=== PATIENT | female | born 1995 | race Two or more races ===

== ENCOUNTER 2016-11-23 13:17 | Outpatient (CLI) | payer OTHER ==
[2016-11-23 14:14] LABS: APPEARANCE,URINE CLEAR; BILIRUBIN,URINE NEGATIVE (NEGATIVE); GLUCOSE, URINE NEGATIVE (NEGATIVE); KETONES,URINE NEGATIVE (NEGATIVE); LEUKOCYTE ESTERASE,URINE NEGATIVE (NEGATIVE); NITRITE,URINE NEGATIVE (NEGATIVE); PROTEIN,URINE NEGATIVE (NEGATIVE); URINE SPECIFIC GRAVITY 1.009; UROBILINOGEN,URINE NEGATIVE mg/dL (<2.0)
[2016-11-23 14:17] LABS: AMNISURE (ROM) NEGATIVE (NEGATIVE)
--- NOTE | 2016-11-23 14:28 | Non Stress Test Report ---
Non Stress Test Datetime Report Generated by CPN: 11/23/2016 14:28 DEMOGRAPHIC EGA NST: 35.6 INDICATION Indication for Study: Other Indication for Study (NST) Other: Labor Check MONITORING Monitor Explained: Monitor Explained; Test Explained; Patient Verbalized Understanding Time on Monitor: 11/23/2016 13:53 Time off Monitor: 11/23/2016 14:20 NST Duration: 27 NST INTERVENTIONS NST Interventions: PO Hydration; Reposition Patient Physician Notified NST: KHetal Rico CNM BABY A: [id number] BABY A Movement : Present Contraction Frequency : irreg FHR Baseline : 140 Accelerations : 15X15 Decelerations : None Variability : Moderate 6-25bpm NST Review: Meets Criteria for Reactive NST NST Review and Verified By : Jazmine Spring RN NST Results: Reactive NST REPORT Report Trigger: Send Report
[2016-11-23 14:30] LABS: URINE BARBITURATES SCREEN NEGATIVE; URINE METHADONE SCREEN NEGATIVE; URINE PHENCYCLIDINE SCREEN NEGATIVE
--- NOTE | 2016-11-29 09:16 | Antepartum Discharge Summary ---
Antepartum DC Datetime Report Generated by CPN: 11/29/2016 09:16 DIET/ACTIVITY/RESTRICTIONS Diet: Regular (11/23/2016 14:24:Maliha Tatum RN) Activity: Normal Activity (11/23/2016 14:24:Maliha Tatum RN) TEACHING/INSTRUCTIONS/REFERRALS Instructions Given To: Patient/FOB (11/23/2016 14:24:Maliha Tatum RN) Instructions Understood: Patient Verbalized Understanding; Support Person Verbalized Understanding (11/23/2016 14:24:Maliha Tatum RN) Referrals: None (11/23/2016 14:24:Maliha Tatum RN) Educational Materials- Other: Kick counts, labor (11/23/2016 14:24:Maliha Tatum RN) DISCHARGE INFORMATION Discharged To: Home (11/23/2016 14:24:Maliha Tatum RN) Discharge Provider Name: Jarrell Rico CNM (11/23/2016 14:24:Maliha Tatum RN) Accompanied By: FOB (11/23/2016 14:24:Maliha Tatum RN) Discharge Method: Ambulatory (11/23/2016 14:24:Maliha Tatum RN) Condition: Stable (11/23/2016 14:24:Maliha Tatum RN) FOLLOW UP INFORMATION Follow Up With: [facility] (11/23/2016 14:24:Maliha Tatum RN) Follow Up On: As Scheduled (11/23/2016 14:24:Maliha Tatum RN) Follow Up Phone Number: [facility] - (11/23/2016 14:24:Maliha Tatum RN)
--- NOTE | 2016-11-29 09:16 | L&D Current Admission ---
Current Admit Datetime Report Generated by CPN: 11/29/2016 09:16 ADMISSION INFORMATION Chief Complaint: Suspected Rupture of Membranes (11/23/2016 13:59:Maliha Tatum RN)
--- NOTE | 2016-11-29 09:17 | L&D Flow Sheet ---
LD Flowsheet Datetime Report Generated by CPN: 11/29/2016 09:17 Datetime: 11/23/2016 14:27 Communication Communication Comments: Pt ambulated off floor in stable condition (Maliha Tatum, RN) Datetime: 11/23/2016 14:20 Communication Communication Comments: Monitors removed. D/C instructions given. labor and kick counts reviewed. Pt has no questions at this time. (Maliha Tatum, RN) Datetime: 11/23/2016 14:18 Communication Communication Comments: D/C order received per K. Rico CNM (Maliha Tatum, RN) Datetime: 11/23/2016 13:59 Pain Pain Scale: 0 (Maliha Tatum, RN) Pain Presence: None/Denies (Maliha Tatum, RN) Pain Type: N/A (Maliha Tatum, RN) Vaginal Exam Membrane Status: PT noted leaking of fluid around 0300 today. Pt states she has been wearing a panty liner and has had discharge on it. (Maliha Tatum RN) Vaginal Bleeding: Scant (Maliha Tatum RN) Maternal Assessment Level of Consciousness: Fully Conscious (Maliha Tatum RN) DTR's/Clonus: DTRs 2+; No Clonus (Maliha Tatum RN) Headache: Denies (Maliha Tatum RN) Breath Sounds, Left: Clear and Equal (Maliha Tatum RN) Breath Sounds, Right: Clear and Equal (Maliha Tatum RN) Nausea/Vomiting: Denies (Maliha Tatum RN) RUQ Epigastric Pain: Denies (Maliha Tatum, RN) Teaching Instructional Method: Verbal; Patient Instructed; Family/Support Person Instructed; Verbalized Understanding (Maliha Tatum RN) Plan of Care: Plan of Care Discussed (Maliha Tatum RN) Unit Routine: [place] to Room; Call [place]; Bed; Handwashing; Monitoring; Bathroom Privileges (Maliha Tatum RN) Datetime: 11/23/2016 13:54 Vital Signs NBP Sys/Solange/Mean (mmHg): 113 (QS system process) : 75 (QS system process) : 87 (QS system process) Pulse: 70 (QS system process) Datetime: 11/23/2016 13:52 Patient Care Patient Position/Activity: Right Lateral (Maliha Tatum RN)
--- NOTE | 2016-11-29 09:17 | L&D Discharge Summary ---
OB Discharge Summary Datetime Report Generated by CPN: 11/29/2016 09:17 DISCHARGE DIAGNOSIS Diagnosis/Symptoms: False Labor Gestation: 35.6 Number of Babies in Womb: 1 Parity: 0 DIET/ACTIVITY/RESTRICTIONS Diet: Regular Activity: Normal Activity TEACHING/INSTRUCTIONS/REFERRALS Instructions Given To: Patient/FOB Instructions Understood: Patient Verbalized Understanding; Support Person Verbalized Understanding Referrals: None Educational Materials- Other: Kick counts, labor DISCHARGE INFORMATION Discharged To: Home Discharge Provider Name: Jarrell Rico CNM Accompanied By: FOB Discharge Method: Ambulatory Condition: Stable FOLLOW UP INFORMATION Follow Up With: [facility] Follow Up On: As Scheduled Follow Up Phone Number: [facility] -
--- NOTE | 2016-11-29 09:17 | L&D General Admission ---
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: [employer] (11/23/2016 13:19:Maliha Tatum RN) Month of 1st Visit: May (11/23/2016 13:19:Maliha Tatum RN) Adequate Care: Yes (11/23/2016 13:19:Maliha Tatum RN) Prepregnancy Weight (lb): 110 (11/23/2016 13:19:Maliha Tatum RN) Prepregnancy Weight (kg): 50.0 (11/23/2016 13:19:QS system process) Height (in): 65 (11/23/2016 14:09:QS system process) ALLERGIES Medication Allergy: No (11/23/2016 13:19:Maliha Tatum RN) Medication Allergies: No Known Allergies (11/23/2016) (11/23/2016 14:09:QS system process) Latex Allergy: No Latex Allergies (11/23/2016 13:19:Maliha Tatum RN) COMMUNICATION Primary Language: Czech (11/23/2016 13:19:Maliha Tatum RN) DEMOGRAPHICS Address: [address] [place] [id number] (11/23/2016 13:17:QS system process) Zipcode: [address] (11/23/2016 13:17:QS system process) Home (11/23/2016 13:17:QS system process) SSN: [id number] (11/23/2016 13:17:QS system process) Next of Kin Name: BENITO DAIGLE (11/23/2016 13:17:QS system process) Next of Kin (11/23/2016 13:17:QS system process) Next of Kin Relationship: SPO (11/23/2016 13:17:QS system process) Date of : 1995 (11/23/2016 13:17:QS system process) Marital Status: (11/23/2016 13:17:QS system process) Sex: Female (11/23/2016 13:17:QS system process) Race: Other (11/23/2016 13:17:QS system process) Ethnicity: or (11/23/2016 13:17:QS system process) Quaker: None (11/23/2016 13:17:QS system process) DRUG AND ALCOHOL USE Alcohol: No (11/23/2016 13:19:Maliha Tatum RN) Cigarettes: Never Smoker. [id number] (11/23/2016 13:19:Maliha Tatum RN) Marijuana: No (11/23/2016 13:19:Maliha Tatum RN) Cocaine: No (11/23/2016 13:19:Maliha Tatum RN) Other Illicit Drugs: No (11/23/2016 13:19:Maliha Tatum RN) VACCINE HISTORY Influenza Vaccine: Yes (11/23/2016 13:19:Maliha Tatum RN) Influenza Date: 08/2016 (11/23/2016 13:19:Maliha Tatum RN) Pneumococcal Vaccine: No (11/23/2016 13:19:Maliha Tatum RN) Tetanus Vaccine: Yes (11/23/2016 13:19:Maliha Tatum RN) Tetanus Date: 09/2016 (11/23/2016 13:19:Maliha Tatum RN) Tdap Vaccine: Yes (11/23/2016 13:19:Maliha Tatum RN) Tdap Date: 09/2016 (11/23/2016 13:19:Maliha Tatum RN) Hepatitis B Vaccine: Uncertain (11/23/2016 13:19:Maliha Tatum RN) Feeding Preference: Both (11/23/2016 13:19:Maliha Tatum RN) Benefit of Breast Feed Discussed: Yes (11/23/2016 13:19:Maliha Tatum RN) Circumcision: No (11/23/2016 13:19:Maliha Tatum RN) Classes Attended: No (11/23/2016 13:19:Maliha Tatum RN) Tubal Ligation: No (11/23/2016 13:19:Maliha Tatum RN) Tubal Authorization Signed: N/A (11/23/2016 13:19:Maliha Tatum RN) Consent: N/A (11/23/2016 13:19:Maliha Tatum RN) Consent Signed: N/A (11/23/2016 13:19:Maliha Tatum RN) Support Person: Benito Daigle (11/23/2016 13:19:Maliha Tatum RN) Support Person Relationship: Significant Other (11/23/2016 13:19:Maliha Tatum RN) Cultural/Spritual Practice: No (11/23/2016 13:19:Maliha Tatum RN) Spir/Cult Dietary Needs: No (11/23/2016 13:19:Maliha Tatum RN) LIVING SITUATION/DISCHARGE PLAN Living Arrangements: House (11/23/2016 13:19:Maliha Tatum RN) Adequate Access to:: Electric; Heat; Refrigeration; Plumbing/Running water; Phone; Transportation (11/23/2016 13:19:Maliha Tatum RN) WIC Program: No (11/23/2016 13:19:Maliha Tatum RN) 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: Benito (11/23/2016 13:19:Maliha Tautm RN) Person to Help after Discharge: Benito (11/23/2016 13:19:Maliha Tatum RN) Currently Using Commun Resources: No (11/23/2016 13:19:Maliha Tatum RN) Outside Agency/Travel Specialist: No (11/23/2016 13:19:Maliha Tatmu RN) Car Seat for Discharge: Yes (11/23/2016 13:19:Maliha Tatum RN) Adoption Requested: No (11/23/2016 13:19:Maliha Tatum RN) Pt Contact w/ Post : N/A (11/23/2016 13:19:Maliha Tatum RN) LABS Blood Type: A Positive (11/23/2016 13:19:Maliha Tatum RN) Antibody Screen: Negative (11/23/2016 13:19:Maliha Tatum RN) Gonorrhea: Negative (11/23/2016 13:19:Maliha Tatum RN) Chlamydia: Negative (11/23/2016 13:19:Maliha Tatum RN) RPR/VDRL: Nonreactive (11/23/2016 13:19:Maliha Tatum RN) HIV Exposure Test: Negative (11/23/2016 13:19:Maliha Tatum RN) Hepatitis B: Negative (11/23/2016 13:19:Maliha Tatum RN) Rubella: Immune (11/23/2016 13:19:Maliha Tatum RN) OB/PREVIOUS HISTORY Current Procedures: Ultrasound; NST (11/23/2016 13:19:Maliha Tatum RN) History of Previous : No (11/23/2016 13:19:Maliha Tatum RN) History of Gestational Diabetes: No (11/23/2016 13:19:Maliha Tatum RN) History of PIH: No (11/23/2016 13:19:Maliha Tatum RN) History of Incompetent Cervix: No (11/23/2016 13:19:Maliha Tatum RN) History of Placenta Previa/Abrup: No (11/23/2016 13:19:Maliha Tatum RN) History of Macrosomia: No (11/23/2016 13:19:Maliha Tatum RN) History of IUGR: No (11/23/2016 13:19:Maliha Tatum RN) History of Hemorrhage: No (11/23/2016 13:19:Maliha Tatum RN) History of Loss/Stillborn: No (11/23/2016 13:19:Maliha Tatum RN) History of : No (11/23/2016 13:19:Maliha Tatum RN) History of D (Rh) Sensitization: No (11/23/2016 13:19:Maliha Tatum RN) History Recurrent Loss/Stillborn: No (11/23/2016 13:19:Maliha Tatum RN) History Depression/PP Depression: No (11/23/2016 13:19:Maliha Tatum RN) History of Uterine Anomaly/LOPEZ: No (11/23/2016 13:19:Maliha Tatum RN) History of Infertility: No (11/23/2016 13:19:Maliha Tatum RN) History of ART Treatment: No (11/23/2016 13:19:Maliha Tatum RN) History of LOPEZ: No (11/23/2016 13:19:Maliha Tatum RN) Comments Obstetrical History: G1: IEB 2013 G2: SAB 2014 G3: current (11/23/2016 13:19:Maliha Tatum RN) MEDICAL HISTORY Med Hx Diabetes: No (11/23/2016 13:19:Maliha Tatum RN) Med Hx Hypertension: No (11/23/2016 13:19:Maliha Tatum RN) Med Hx Heart Disease: No (11/23/2016 13:19:Maliha Tatum RN) Med Hx Autoimmune Disorder: No (11/23/2016 13:19:Maliha Tatum RN) Med Hx Kidney Disease/UTI: No (11/23/2016 13:19:Maliha Tatum RN) Med Hx Neurologic/Epilepsy: No (11/23/2016 13:19:Maliha Tatum RN) Med Hx Psychiatric Disorders: No (11/23/2016 13:19:Maliha aTtum RN) Med Hx Hepatitis/Liver Disease: No (11/23/2016 13:19:Maliha Tatum RN) Med Hx Varicosities/Phlebitis: No (11/23/2016 13:19:Maliha Tatum RN) Med Hx Thyroid Dysfunction: No (11/23/2016 13:19:Maliha Tatum RN) Med Hx Trauma/Violence: No (11/23/2016 13:19:Maliha Tatum RN) Med Hx Blood Transfusion: No (11/23/2016 13:19:Maliha Tatum RN) Med Hx Pulmonary (Asthma,TB): Yes (11/23/2016 13:19:Maliha Tatum RN) Med Hx Breast: No (11/23/2016 13:19:Maliha Tatum RN) Med Hx SUPERVISOR PIGMENT MAKING Surgery: No (11/23/2016 13:19:Maliha Tatum RN) Med Hx Hospitalization/Surgery: No (11/23/2016 13:19:Maliha Tatum RN) Med Hx Anesthetic Complications: No (11/23/2016 13:19:Maliha Tatum RN) Med Hx Abnormal Pap Smear: No (11/23/2016 13:19:Maliha Tatum RN) Other Medical Diseases: No (11/23/2016 13:19:Maliha Tatum RN) Med Hx Significant Family Hx: No (11/23/2016 13:19:Maliha Tatum RN) Details of Med/Surg Hx: Asthma (Albuterol) (11/23/2016 13:19:Maliha Tatum RN) INFECTIOUS HISTORY Inf Hx Gonorrhea: No (11/23/2016 13:19:Mlaiha Tatum RN) Inf Hx Chlamydia: No (11/23/2016 13:19:Maliha Tatum RN) Inf Hx Syphilis: No (11/23/2016 13:19:Maliha Tatum RN) Inf Hx HIV/AIDS: No (11/23/2016 13:19:Maliha Tatum RN) Inf Hx Human Papilloma Virus: No (11/23/2016 13:19:Maliha Tatum RN) Inf Hx Pt/Partner Genital Herpes: No (11/23/2016 13:19:Maliha Tatum RN) Inf Hx Tuberculosis/Exposure: No (11/23/2016 13:19:Maliha Tatum RN) Inf Hx Hepatitis B,C: No (11/23/2016 13:19:Maliha Tatum RN) Inf Hx Rash or Viral Illness: No (11/23/2016 13:19:Maliha Tatum RN) GENETIC HISTORY Gen Hx Age >=35 at [place]AL[place]: No (11/23/2016 13:19:Maliha Tatum RN) Gen Hx Thalassemia: No (11/23/2016 13:19:Maliha Tatum RN) Gen Hx Congenital Heart Defect: No (11/23/2016 13:19:Maliha Tatum RN) Gen Hx Neural Tube Defect: No (11/23/2016 13:19:Maliha Tatum RN) Gen Hx Down's Syndrome: No (11/23/2016 13:19:Maliha Tatum RN) Gen Hx Guevara-Sachs: No (11/23/2016 13:19:Maliha Tatum RN) Gen Hx Caren: No (11/23/2016 13:19:Maliha Tatum RN) Gen Hx Familial Dysautonomia: No (11/23/2016 13:19:Maliha Tatum RN) Gen Hx Sickle Cell Disease/Trait: No (11/23/2016 13:19:Maliha Tatum RN) Gen Hx Hemophilia/Blood Disorder: No (11/23/2016 13:19:Maliha Tatum RN) Gen Hx Muscular Dystrophy: No (11/23/2016 13:19:Maliha Tatum RN) Gen Hx Cystic Fibrosis: No (11/23/2016 13:19:Maliha Tatum RN) Gen Hx Huntingtons Chorea: No (11/23/2016 13:19:Maliha Tatum RN) Gen Hx Mental Retardation/Autism: No (11/23/2016 13:19:Maliha Tatum RN) Gen Hx Tested for Fragile X: No (11/23/2016 13:19:Maliha Tatum RN) Gen Hx Other Inher/Chromosomal: No (11/23/2016 13:19:Maliha Tatum RN) Gen Hx Maternal Metabolic DO: No (11/23/2016 13:19:Maliha Tatum RN) Gen Hx Pt Father or FOB Defect: No (11/23/2016 13:19:Maliha Tatum RN) Gen Hx Other Genetic History: No (11/23/2016 13:19:Maliha Tatum RN) Gen Hx Drugs/Meds since LMP: Yes (11/23/2016 13:19:Maliha Tatum RN) Gen Hx Medications: PNV, albuterol, tylenol (11/23/2016 13:19:Maliha Tatum RN)
== END 2016-11-23 14:27 | disposition home or self-care (01) ==
LOC: LC 13:17
PROVIDERS: ATTEND Obstetrics & Gynecology
PROC: 4A1HXCZ Monitoring of Products of Conception, Cardiac Rate, External Approach (ICD-10-PCS; principal; 2016-11-23)
DX: Z34.93 Encounter for supervision of normal pregnancy, unspecified, third trimester (principal); Z3A.35 35 weeks gestation of pregnancy
CPT/HCPCS: 59025; 80307; 81001; 84112

== ENCOUNTER 2016-12-15 21:24 | Inpatient (IN) | payer OTHER ==
--- NOTE | 2016-12-15 22:00 | L&D Flow Sheet ---
LD Flowsheet Datetime Report Generated by CPN: 12/15/2016 22:00 Datetime: 12/15/2016 21:56 Patient Care Patient Care Comments: Lab personnel at bedside (Madie Anthony, RN) Datetime: 12/15/2016 21:50 Uterine Activity Frequency (min): per patient every 4 minutes (Madie Anthony, RN) Pain Pain Scale: 2 (Madie Anthony, RN) Pain Presence: Intermittent (Madie Anthony, RN) Pain Type: Pressure; Ache (Madie Anthony, RN) Pain Location: Back (Madie Anthony, RN) Pain Goal: 1 (Madie Anthony, RN) Pain Relief Measures: Comfort Measures (Madie Anthony, RN) Pain Coping: Talking Through Contractions (Madie Anthony, RN) Vaginal Exam Vaginal Bleeding: None (Madie Anthony, RN) Maternal Assessment Level of Consciousness: Fully Conscious (Madie Anthony, RN) DTR's/Clonus: DTRs 2+; No Clonus (Madie Anthony, RN) Headache: Denies (Madie Anthony, RN) Breath Sounds, Left: Clear and Equal (Madie Anthony, RN) Breath Sounds, Right: Clear and Equal (Madie Anthony, RN) Nausea/Vomiting: Denies (Madie Anthony, RN) RUQ Epigastric Pain: Denies (Madie Anthony, RN) LaborFlag: Antepartum (QS system process) Datetime: 12/15/2016:45 Communication Communication: Provider Orders Received (Madie Anthony, RN) Communication Comments: Dr Terry called and informed of EGA and blood pressures. Orders received to obtain pre-e labs. (Madie Anthony, RN) Datetime: 12/15/2016 21:42 NBP Sys/Solange/Mean (mmHg): 164 (Madie Anthony, RN) : 98 (Madie Anthony, RN) Vital Sign Comments: Manual Blood Pressure (Madie Anthony, RN) LaborFlag: Antepartum (QS system process) Datetime: 12/15/2016 21:41 NBP Sys/Solange/Mean (mmHg): 154 (QS system process) : 102 (QS system process) : 123 (QS system process) Pulse: 70 (QS system process) LaborFlag: Antepartum (QS system process) Datetime: 12/15/2016 21:40 Vital Signs Stage of : Antepartum (Lily Lattibeaudeir, RN) NBP Sys/Solange/Mean (mmHg): 172 (QS system process) : 101 (QS system process) : 129 (QS system process) Pulse: 71 (QS system process) LaborFlag: Antepartum (QS system process) Datetime: 12/15/2016 21:37 Vital Signs Stage of : Antepartum (Zaina Márquez, RN)
[2016-12-15 22:15] LABS: APPEARANCE,URINE CLEAR; BILIRUBIN,URINE NEGATIVE (NEGATIVE); GLUCOSE, URINE NEGATIVE (NEGATIVE); KETONES,URINE TRACE mg/dL (NEGATIVE); LEUKOCYTE ESTERASE,URINE NEGATIVE (NEGATIVE); NITRITE,URINE NEGATIVE (NEGATIVE); PROTEIN,URINE 100 mg/dL (NEGATIVE); URINE SPECIFIC GRAVITY 1.009; UROBILINOGEN,URINE NEGATIVE mg/dL (<2.0)
[2016-12-15 22:32] LABS: ABSOLUTE LYMPHOCYTES (AUTO) 2.2 10^3/uL (0.5-4.7); ABSOLUTE MONOCYTES (AUTO) 0.4 10^3/uL (0.1-1.4); ABSOLUTE NEUT (AUTO) 4.8 10^3/uL (1.7-8.2); BASOPHILS % (AUTO) 0.4 % (0-2); EOSINOPHILS % (AUTO) 0.6 % (0-6); HEMATOCRIT 34.1 % (36.0-47.0); HEMOGLOBIN 11.8 g/dL (12.0-15.5); HGB HCT DIFFERENCE 1.3; LYMPHOCYTES % (AUTO) 29.7 % (13-45); MEAN CORPUSCULAR HEMOGLOBIN 30.3 pg (27.0-33.4); MEAN CORPUSCULAR HGB CONC 34.5 g/dL (32.0-36.0); MEAN CORPUSCULAR VOLUME 88 fl (80-97); MONOCYTES % (AUTO) 5.8 % (3-13); RED BLOOD COUNT 3.88 10^6/uL (3.72-5.28); RED CELL DISTRIBUTION WIDTH 14.5 % (11.5-14.0); SEGMENTED NEUTROPHILS % (AUTO) 63.5 % (42-78); WHITE BLOOD COUNT 7.5 10^3/uL (4.0-10.5)
[2016-12-15 22:38] LABS: URINE BARBITURATES SCREEN NEGATIVE; URINE METHADONE SCREEN NEGATIVE; URINE OPIATES LOW NEGATIVE; URINE PHENCYCLIDINE SCREEN NEGATIVE
[2016-12-15 22:47] LABS: ALANINE AMINOTRANSFERASE 23 U/L (9-52); ALKALINE PHOSPHATASE 155 U/L (38-126); ANION GAP 10 (5-19); ASPARTATE AMINO TRANSFERASE 25 U/L (14-36); BILIRUBIN,TOTAL 0.4 mg/dL (0.2-1.3); BLOOD UREA NITROGEN 11 mg/dL (7-20); CALCIUM 10.2 mg/dL (8.4-10.2); CARBON DIOXIDE 22 mmol/L (22-30); CHLORIDE 104 mmol/L (98-107); CREATININE RESULT 0.51 mg/dL (0.52-1.25); GLUCOSE 75 mg/dL (75-110); LDH 404 U/L (313-618); POTASSIUM 4.2 mmol/L (3.6-5.0); SODIUM 136.4 mmol/L (137-145); URIC ACID 3.8 mg/dL (2.5-6.2)
[2016-12-15] MEDS ORDERED: RINGERS SOLUTION,LACTATED 1,000 ML IV PRN (23:03)
[2016-12-15] MEDS ORDERED: RINGERS SOLUTION,LACTATED 1,000 ML IV ONE (23:03)
[2016-12-15] MEDS ORDERED: MISOPROSTOL 0.1 MG TABLET PV ONE (23:05)
[2016-12-15] MEDS ORDERED: LABETALOL HCL INJ 20 MG/4 ML DISP.SYRIN IV PRN (23:05)
[2016-12-15] MEDS ORDERED: MISOPROSTOL 0.1 MG TABLET ONE (23:33)
[2016-12-15] MEDS ORDERED: ZOLPIDEM TARTRATE 5 MG TABLET PO SCH (23:45)
[2016-12-15] MEDS ORDERED: ZOLPIDEM TARTRATE 5 MG TABLET ONE (23:54)
[2016-12-16] MEDS ORDERED: MISOPROSTOL 0.1 MG TABLET ONE (03:54)
[2016-12-16] MEDS ORDERED: DEXTROSE 5%-LACTATED RINGERS 1,000 ML IV PRN (05:49)
--- NOTE | 2016-12-16 08:01 | L&D Flow Sheet ---
LD Flowsheet Datetime Report Generated by CPN: 12/16/2016 08:00 Datetime: 12/16/2016 07:45 Monitor Mode: External; Palpation (Galilea Taynton, RN) Frequency (min): 1-3 (Galilea Taynton, RN) Quality: Mild/Moderate (Galilea Taynton, RN) Duration (sec): 40-100 (Galilea Taynton, RN) Resting Tone (Palpate): Relaxed (Galliea Taynton, RN) Monitor Mode: External US (Galilea Taynton, RN) FHR Baseline Rate : 135 (Galilea Taynton, RN) Variability: Moderate 6-25 bpm (Galilea Taynton, RN) Accelerations: 15X15 (Galilea Taynton, RN) Decelerations: None (Galilea Taynton, RN) Datetime: 12/16/2016 07:31 NBP Sys/Solange/Mean (mmHg): 146 (QS system process) : 97 (QS system process) : 117 (QS system process) Pulse: 67 (QS system process) LaborFlag: Antepartum (QS system process) Datetime: 12/16/2016 07:30 Monitor Mode: External; Palpation (Galilea Taynton, RN) Frequency (min): 1-2 (Galilea Taynton, RN) Quality: Mild/Moderate (Galilea Taynton, RN) Duration (sec): 40-60 (Galilea Taynton, RN) Resting Tone (Palpate): Relaxed (Galilea Taynton, RN) Monitor Mode: External US (Galilea Taynton, RN) FHR Baseline Rate : 140 (Galilea Taynton, RN) Variability: Minimal - Undetectable to <=5 bpm (Galilea Taynton, RN) Accelerations: None (Galilea Taynton, RN) Decelerations: None (Galilea Taynton, RN) Datetime: 12/16/2016 07:15 Monitor Mode: External; Palpation (Galilea Franks RN) Monitor Interventions for UA: [place] Adjusted (Galilea Franks RN) Frequency (min): x0 (Galilea Franks RN) Quality: Mild/Moderate (Galilea Franks RN) Resting Tone (Palpate): Relaxed (Galilea Franks RN) Monitor Mode: External US (Galilea Franks RN) FHR Baseline Rate : 140 (Galilea Franks RN) Variability: Minimal - Undetectable to <=5 bpm (Galilea Franks RN) Accelerations: None (Galilea Franks RN) Decelerations: None (Galilea Franks RN) I/O Interventions: Up to BR (Galilea Franks RN) Communication: RN at Bedside (Galilea Franks RN) Communication Comments: Bedside report received from Tracee Anthony RN; plan of care discussed with patient. Patient verbalized understanding (Galilea Franks RN) Datetime: 12/16/2016 07:01 NBP Sys/Solange/Mean (mmHg): 139 (QS system process) : 93 (QS system process) : 112 (QS system process) Pulse: 68 (QS system process) LaborFlag: Antepartum (QS system process) Datetime: 12/16/2016 07:00 Stage of : Antepartum (Madie Anthony, RN) Monitor Mode: External (Madie Anthony, RN) Frequency (min): irregular (Madie Anthony, RN) Quality: Mild/Moderate (Madie Anthony, RN) Pattern: Normal: <= 5 Contractions in 10 Minutes (Madie Anthony, RN) Resting Tone (Palpate): Relaxed (Madie Anthony, RN) Monitor Mode: External US (Madie Anthony, RN) FHR Baseline Rate : 140 (Madie Anthony, RN) FHR Baseline Changes: No Baseline Change (Madie Anthony, RN) Variability: Moderate 6-25 bpm (Madie Anthony, RN) Accelerations: 15X15 (Madie Anthony, RN) Decelerations: Early (Madie Anthony, RN) Communication: RN Reviewed Strip (Madie Anthony, RN) Datetime: 12/16/2016 06:50 I/O Interventions: Up to BR (Madie Anthony, RN) Datetime: 12/16/2016 06:31 NBP Sys/Solange/Mean (mmHg): 138 (QS system process) : 85 (QS system process) : 107 (QS system process) Pulse: 69 (QS system process) LaborFlag: Antepartum (QS system process) Datetime: 12/16/2016 06:30 Stage of : Antepartum (Madie Anthony, RN) Respirations: 18 (Madie Anthony, RN) Monitor Mode: External; Palpation (Madie Anthony, RN) Frequency (min): 2.5-3 (Madie Anthony, RN) Quality: Mild/Moderate (Madie Anthony, RN) Duration (sec): 50-90 (Madie Anthony, RN) Pattern: Normal: <= 5 Contractions in 10 Minutes (Madie Anthony, RN) Resting Tone (Palpate): Relaxed (Madie Anthony, RN) Monitor Mode: External US (Madie Anthony, RN) FHR Baseline Rate : 130 (Madie Anthony, RN) FHR Baseline Changes: No Baseline Change (Madie Anthony, RN) Variability: Moderate 6-25 bpm (Madie Anthony, RN) Accelerations: 15X15 (Madie Anthony RN) Decelerations: None (Madie Anthony RN) Pain Scale: 4 (Madie Anthony RN) Pain Presence: Intermittent (Madie Anthony RN) Pain Type: Contraction (Madie Anthony RN) Pain Location: Back (Madie Anthony RN) Pain Goal: 1 (Madie Anthony RN) Pain Relief Measures: Comfort Measures (Madie Anthony RN) Pain Coping: Talking Through Contractions; Breathing Through Contractions (Madie Anthony RN) Comfort Measures: Breathing/Relaxation; Family Support (Madie Anthony RN) Communication: RN at Bedside; RN Reviewed Strip (Madie Anthony RN) LaborFlag: Antepartum (QS system process) Datetime: 12/16/2016 06:05 I/O Interventions: Up to BR (Madie Anthony RN) Datetime: 12/16/2016 06:01 NBP Sys/Solange/Mean (mmHg): 134 (QS system process) : 87 (QS system process) : 106 (QS system process) Pulse: 75 (QS system process) LaborFlag: Antepartum (QS system process) Datetime: 12/16/2016 06:00 Stage of : Antepartum (Madie Anthony, RN) Monitor Mode: External; Palpation (Madie Anthony, RN) Frequency (min): 1-4 (Madie Anthony, RN) Quality: Mild/Moderate (Madie Anthony, RN) Duration (sec): 40-80 (Madie Anthony, RN) Pattern: Normal: <= 5 Contractions in 10 Minutes (Madie Anthnoy, RN) Resting Tone (Palpate): Relaxed (Madie Anthony, RN) Monitor Mode: External US (Madie Anthony, RN) FHR Baseline Rate : 125 (Madie Anthony, RN) FHR Baseline Changes: No Baseline Change (Madie Anthony, RN) Variability: Minimal - Undetectable to <=5 bpm (Madie Anthony, RN) Accelerations: None (Madie Anthony, RN) Decelerations: None (Madie Anthony, RN) Communication: RN at Bedside; RN Reviewed Strip (Madie Anthony, RN) Datetime: 12/16/2016 05:58 IV/Blood Work: New IV Bag Hung (Madie Anthony, RN) Patient Care Comments: LR 125ml/hr (Madie Anthony, RN) Datetime: 12/16/2016 05:46 IV/Blood Work: IV Bolus Started (Madie Anthony, RN) Patient Care Comments: Bolus of D5 started (Madie Anthony, RN) Datetime: 12/16/2016 05:31 NBP Sys/Solange/Mean (mmHg): 117 (QS system process) : 75 (QS system process) : 92 (QS system process) Pulse: 75 (QS system process) LaborFlag: Antepartum (QS system process) Datetime: 12/16/2016 05:30 Stage of : Antepartum (Madie Anthony, RN) Monitor Mode: External (Madie Anthony, RN) Frequency (min): irregular (Madie Anthony, RN) Quality: Mild/Moderate (Madie Anthony, RN) Duration (sec): 40-90 (Madie Anthony, RN) Pattern: Normal: <= 5 Contractions in 10 Minutes (Madie Anthony, RN) Resting Tone (Palpate): Relaxed (Madie Anthony, RN) Monitor Mode: External US (Madie Anthony, RN) FHR Baseline Rate : 130 (Madie Anthony, RN) FHR Baseline Changes: No Baseline Change (Madie Anthony, RN) Variability: Moderate 6-25 bpm (Madie Anthony, RN) Accelerations: 15X15 (Madie Anthony, RN) Comments: spontaneous decel x1 (Madie Anthony, RN) Communication: RN Reviewed Strip (Madie Anthony, RN) Datetime: 12/16/2016 05:01 NBP Sys/Solange/Mean (mmHg): 126 (QS system process) : 69 (QS system process) : 93 (QS system process) Pulse: 67 (QS system process) LaborFlag: Antepartum (QS system process) Datetime: 12/16/2016 05:00 Stage of : Antepartum (Madie Anthony, RN) Monitor Mode: External (Madie Anthony, RN) Frequency (min): irregular (Madie Anthony, RN) Quality: Mild/Moderate (Madie Anthony, RN) Duration (sec): 70-110 (Madie Anthony, RN) Pattern: Normal: <= 5 Contractions in 10 Minutes (Madie Anthony, RN) Resting Tone (Palpate): Relaxed (Madie Anthony, RN) Monitor Mode: External US (Madie Atnhony, RN) FHR Baseline Rate : 125 (Madie Anthony, RN) FHR Baseline Changes: No Baseline Change (Madie Anthony, RN) Variability: Moderate 6-25 bpm (Madie Anthony, RN) Accelerations: 15X15 (Madie Anthony, RN) Decelerations: None (Madie Anthony, RN) Communication: RN Reviewed Strip (Madie Anthony, RN) Datetime: 12/16/2016 04:32 NBP Sys/Solange/Mean (mmHg): 138 (QS system process) : 80 (QS system process) : 104 (QS system process) Pulse: 75 (QS system process) LaborFlag: Antepartum (QS system process) Datetime: 12/16/2016 04:30 Stage of : Antepartum (Madie Anthony, RN) Monitor Mode: External (Madie Anthony, RN) Frequency (min): irregular (Madie Anthony, RN) Quality: Mild/Moderate (Madie Anthony, RN) Duration (sec): 90-120 (Madie Anthony, RN) Pattern: Normal: <= 5 Contractions in 10 Minutes (Madie Anthony, RN) Resting Tone (Palpate): Relaxed (Madie Anthony, RN) Monitor Mode: External US (Madie Anthony, RN) FHR Baseline Rate : 130 (Madie Anthony, RN) FHR Baseline Changes: No Baseline Change (Madie Anthony, RN) Variability: Moderate 6-25 bpm (Madie Anthony, RN) Accelerations: 15X15 (Madie Atnhony, RN) Decelerations: None (Madie Anthony, RN) Comments: with periods of minimal variability (Madie Anthony, RN) Communication: RN at Bedside; RN Reviewed Strip (Madie Anthony, RN) Datetime: 12/16/2016 04:09 Respirations: 18 (Madie Anthony, RN) Temperature (F): 98.4 (Madie Anthony, RN) Temperature (C): 36.9 (QS system process) Patient Position/Activity: Right Lateral (Madie Anthony, RN) LaborFlag: Antepartum (QS system process) Datetime: 12/16/2016 04:08 Dilatation (cm): 1.5 (Madie Anthony, RN) Effacement (%): 80 (Madie Anthony, RN) Station: -1 (Madie Anthony, RN) Exam by: Tracee Anthony RN (Madie Anthony, RN) Vaginal Bleeding: None (Madie Anthony, RN) Cervix, Consistency: Moderate (Madie Anthony, RN) Cervix, Position: Midposition (Madie Anthony, RN) Cervical Ripening Agents: Cytotec @ (Lily Lattibeaudeir, RN) Medication Comments: PV (Madie Anthony, RN) Datetime: 12/16/2016 04:01 NBP Sys/Solange/Mean (mmHg): 119 (QS system process) : 79 (QS system process) : 95 (QS system process) Pulse: 67 (QS system process) LaborFlag: Antepartum (QS system process) Datetime: 12/16/2016 04:00 Stage of : Antepartum (Madie Anthony, RN) Monitor Mode: External; Palpation (Madie Anthony, RN) Frequency (min): irregular with irritability (Madie Anthony, RN) Quality: Mild/Moderate (Madie Anthony, RN) Pattern: Normal: <= 5 Contractions in 10 Minutes (Madie Anthony, RN) Resting Tone (Palpate): Relaxed (Madie Anthony, RN) Monitor Mode: External US (Madie Anthony, RN) FHR Baseline Rate : 130 (Madie Anthony, RN) FHR Baseline Changes: No Baseline Change (Madie Anthony, RN) Variability: Moderate 6-25 bpm (Madie Anthony, RN) Accelerations: 15X15 (Madie Anthony, RN) Decelerations: None (Madie Anthony, RN) Comments: with periods of minimal variability (Madie Anthony, RN) Communication: RN at Bedside; RN Reviewed Strip (Madie Anthony, RN) Datetime: 12/16/2016 03:31 NBP Sys/Solange/Mean (mmHg): 125 (QS system process) : 79 (QS system process) : 97 (QS system process) Pulse: 70 (QS system process) LaborFlag: Antepartum (QS system process) Datetime: 12/16/2016 03:30 Stage of : Antepartum (Madie Anthony RN) Monitor Mode: External (Madie Anthony RN) Frequency (min): irregular (Madie Anthony RN) Quality: Mild/Moderate (Madie Anthony RN) Pattern: Normal: <= 5 Contractions in 10 Minutes (Madie Anthony RN) Resting Tone (Palpate): Relaxed (Madie Anthony RN) Contraction Comments: UTD duration due to patient movement and up to restroom (Madie Anthony RN) Monitor Mode: External US (Madie Anthony RN) FHR Baseline Rate : 130 (Madie Anthony RN) FHR Baseline Changes: No Baseline Change (Madie Anthony RN) Variability: Moderate 6-25 bpm (Madie Anthony RN) Accelerations: 15X15 (Madie Anthony RN) Decelerations: None (Madie Anthony RN) Communication: RN at Bedside; RN Reviewed Strip (Madie Anthony, RN) Datetime: 12/16/2016 03:22 Vital Sign Comments: BP cuff moved to L arm (Madie Anthony, RN) Patient Position/Activity: Right Lateral (Madie Anthony, RN) Datetime: 12/16/2016 03:19 I/O Interventions: Up to BR (Madie Anthony, RN) Datetime: 12/16/2016 03:02 NBP Sys/Solange/Mean (mmHg): 143 (QS system process) : 98 (QS system process) : 118 (QS system process) Pulse: 66 (QS system process) LaborFlag: Antepartum (QS system process) Datetime: 12/16/2016 03:00 Stage of : Antepartum (Madie Anthony, MARCELLUS) Respirations: 16 (Madie Anthony, RN) Monitor Mode: External (Madie Anthony, RN) Frequency (min): x2 (Madie Anthony, MARCELLUS) Quality: Mild/Moderate (Madie Anthony, RN) Duration (sec): 60-120 (Madie Anthony, RN) Pattern: Normal: <= 5 Contractions in 10 Minutes (Madie Anthony, RN) Resting Tone (Palpate): Relaxed (Madie Anthony, RN) Monitor Mode: External US (Madie Anthony, RN) FHR Baseline Rate : 140 (Madie Anthony, RN) FHR Baseline Changes: No Baseline Change (Madie Anthony, RN) Variability: Moderate 6-25 bpm (Madie Anthony, RN) Accelerations: 15X15 (Madie Anthony, RN) Decelerations: None (Madie Anthony, RN) Pain Scale: 2 (Madie Anthony RN) Pain Presence: Intermittent (Madie Anthony RN) Pain Type: Pressure; Ache (Madie Anthony RN) Pain Location: Back (Madie Anthony RN) Pain Goal: 1 (Madie Anthony RN) Pain Relief Measures: Comfort Measures (Madie Anthony RN) Pain Coping: Talking Through Contractions (Madie Anthony RN) Comfort Measures: Breathing/Relaxation; Family Support (Madie Anthony RN) Communication: RN at Bedside; RN Reviewed Strip (Madie Anthony RN) LaborFlag: Antepartum (QS system process) Datetime: 12/16/2016 02:43 NBP Sys/Solange/Mean (mmHg): 136 (QS system process) NBP Sys/Solange/Mean (mmHg): 154 (QS system process) : 82 (QS system process) : 104 (QS system process) : 103 (QS system process) : 123 (QS system process) Pulse: 71 (QS system process) Pulse: 83 (QS system process) Vital Sign Comments: Patient on Left side with BP cuff on left arm, switched cuff to right arm and retook blood pressure. (Madie Anthony RN) LaborFlag: Antepartum (QS system process) Datetime: 12/16/2016 02:33 Patient Position/Activity: Left Lateral; Low Fowlers (Madie Anthony RN) Datetime: 12/16/2016 02:32 NBP Sys/Solange/Mean (mmHg): 152 (QS system process) : 105 (QS system process) : 124 (QS system process) Pulse: 71 (QS system process) LaborFlag: Antepartum (QS system process) Datetime: 12/16/2016 02:30 Stage of : Antepartum (Madie Anthony, RN) Monitor Mode: External (Madie Anthony, RN) Frequency (min): 3-5.5 (Madie Anthony, RN) Quality: Mild/Moderate (Madie Anthony, RN) Duration (sec): 70-140 (Madie Anthony, RN) Pattern: Normal: <= 5 Contractions in 10 Minutes (Madie Anthony, RN) Resting Tone (Palpate): Relaxed (Madie Anthony, RN) Monitor Mode: External US (Madie Anthony, RN) FHR Baseline Rate : 135 (Madie Anthony, RN) FHR Baseline Changes: No Baseline Change (Madie Anthony, RN) Variability: Moderate 6-25 bpm (Madie Anthony, RN) Accelerations: Prolonged (Madie Anthony, RN) Decelerations: None (Madie Anthony, RN) Communication: RN Reviewed Strip (Madie Anthony, RN) Datetime: 12/16/2016 02:02 NBP Sys/Solange/Mean (mmHg): 160 (QS system process) : 91 (QS system process) : 120 (QS system process) Pulse: 64 (QS system process) LaborFlag: Antepartum (QS system process) Datetime: 12/16/2016 02:00 Stage of : Antepartum (Madie Anthony, RN) Monitor Mode: External (Madie Anthony, RN) Frequency (min): 2-6.5 (Madie Anthony, RN) Quality: Mild/Moderate (Madie Anthony, RN) Duration (sec): 80-120 (Madie Anthony, RN) Pattern: Normal: <= 5 Contractions in 10 Minutes (Madie Anthony, RN) Resting Tone (Palpate): Relaxed (Madie Anthony, RN) Monitor Mode: External US (Madie Anthony, RN) FHR Baseline Rate : 135 (Madie Anthony, RN) FHR Baseline Changes: No Baseline Change (Madie Anthony, RN) Variability: Moderate 6-25 bpm (Madie Anthony, RN) Accelerations: 15X15 (Madie Anthony, RN) Decelerations: None (Madie Anthony, RN) Communication: RN at Bedside; RN Reviewed Strip (Madie Anthony, RN) Datetime: 12/16/2016 01:31 NBP Sys/Solange/Mean (mmHg): 134 (QS system process) : 90 (QS system process) : 108 (QS system process) Pulse: 63 (QS system process) LaborFlag: Antepartum (QS system process) Datetime: 12/16/2016 01:30 Stage of : Antepartum (Madie Anthony, RN) Monitor Mode: External (Madie Anthony, RN) Frequency (min): 2-7 (Madie Anthony, RN) Quality: Mild/Moderate (Madie Anthony, RN) Duration (sec): 80-110 (Madie Anthony, RN) Pattern: Normal: <= 5 Contractions in 10 Minutes (Madie Anthony, RN) Resting Tone (Palpate): Relaxed (Madie Anthony, RN) Monitor Mode: External US (Madie Anthony, RN) FHR Baseline Rate : 130 (Madie Anthony, RN) Variability: Moderate 6-25 bpm (Madie Anthony, RN) Accelerations: 15X15 (Madie Anthony, RN) Decelerations: None (Madie Anthony, RN) Comments: with a change in baseline to 150 (Madie Anthony, RN) Communication: RN Reviewed Strip (Madie Anthony, RN) Datetime: 12/16/2016 01:02 NBP Sys/Solange/Mean (mmHg): 145 (QS system process) : 92 (QS system process) : 114 (QS system process) Pulse: 63 (QS system process) LaborFlag: Antepartum (QS system process) Datetime: 12/16/2016 01:00 Stage of : Antepartum (Madie Anthony, RN) Monitor Mode: External (Madie Anthony, RN) Frequency (min): 3-5 (Madie Anthony, RN) Quality: Mild/Moderate (Madie Anthony, RN) Duration (sec): 90-140 (Madie Anthony, RN) Pattern: Normal: <= 5 Contractions in 10 Minutes (Madie Anthony, RN) Resting Tone (Palpate): Relaxed (Madie Anthony, RN) Monitor Mode: External US (Madie Anthony, RN) FHR Baseline Rate : 130 (Madie Anthony, RN) FHR Baseline Changes: No Baseline Change (Madie Anthony, RN) Variability: Moderate 6-25 bpm (Madie Anthony, RN) Accelerations: 15X15 (Madie Anthony, RN) Decelerations: None (Madie Anthony, RN) Communication: RN Reviewed Strip (Madie Anthony, RN) Datetime: 12/16/2016 00:31 NBP Sys/Solange/Mean (mmHg): 137 (QS system process) : 84 (QS system process) : 106 (QS system process) Pulse: 67 (QS system process) LaborFlag: Antepartum (QS system process) Datetime: 12/16/2016 00:30 Stage of : Antepartum (Madie Anthony, RN) Monitor Mode: External (Madie Anthony, RN) Frequency (min): 3-5 (Madie Anthony, RN) Quality: Mild/Moderate (Madie Anthony, RN) Duration (sec): 70-140 (Madie Anthony, RN) Pattern: Normal: <= 5 Contractions in 10 Minutes (Madie Anthony, RN) Resting Tone (Palpate): Relaxed (Madie Anthony, RN) Monitor Mode: External US (Madie Anthony, RN) FHR Baseline Rate : 130 (Madie Anthony, RN) FHR Baseline Changes: No Baseline Change (Madie Anthony, RN) Variability: Moderate 6-25 bpm (Madie Anthony, RN) Accelerations: 15X15 (Madie Anthony, RN) Decelerations: None (Madie Anthony, RN) Communication: RN at Bedside; RN Reviewed Strip (Madie Anthony, RN) Datetime: 12/16/2016 00:01 NBP Sys/Solange/Mean (mmHg): 129 (QS system process) : 88 (QS system process) : 104 (QS system process) Pulse: 71 (QS system process) LaborFlag: Antepartum (QS system process) Datetime: 12/16/2016 00:00 Stage of : Antepartum (Madie Anthony, RN) Monitor Mode: External; Palpation (Madie Anthony, RN) Frequency (min): irregular (Madie Anthony, RN) Quality: Mild/Moderate (Madie Anthony, RN) Duration (sec): 50-100 (Madie Anthony, RN) Pattern: Normal: <= 5 Contractions in 10 Minutes (Madie Anthony, RN) Resting Tone (Palpate): Relaxed (Madie Anthony, RN) Monitor Mode: External US (Madie Anthony, RN) FHR Baseline Rate : 130 (Madie Anthony, RN) FHR Baseline Changes: No Baseline Change (Madie Anthony, RN) Variability: Moderate 6-25 bpm (Madie Anthony, RN) Accelerations: 15X15 (Madie Anthony, RN) Decelerations: None (Madie Anthony, RN) Communication: RN at Bedside; RN Reviewed Strip (Madie Anthony, RN) Datetime: 12/15/2016 23:59 Analgesics/Sedatives: Ambien (mg) @ 5 (Madie Anthony, RN) Datetime: 12/15/2016 23:49 Dilatation (cm): 1.5 (Madie Anthony, RN) Effacement (%): 60 (Madie Anthony, RN) Station: -1 (Madie Anthony, RN) Exam by: Tracee Anthony RN (Madie Anthony, RN) Vaginal Bleeding: None (Madie Anthony, RN) Cervix, Consistency: Moderate (Madie Anthony, RN) Cervix, Position: Posterior (Madie Anthony, RN) Cervical Ripening Agents: Cytotec @ 25mcg (Madie Anthony, RN) Medication Comments: PV (Madie Anthony, RN) Datetime: 12/15/2016 23:45 NBP Sys/Solange/Mean (mmHg): 140 (QS system process) : 89 (QS system process) : 109 (QS system process) Pulse: 72 (QS system process) LaborFlag: Antepartum (QS system process) Datetime: 12/15/2016 23:38 NBP Sys/Solange/Mean (mmHg): 135 (QS system process) : 85 (QS system process) : 103 (QS system process) Pulse: 71 (QS system process) LaborFlag: Antepartum (QS system process) Datetime: 12/15/2016 23:30 Stage of : Antepartum (Madie Anthony, RN) Respirations: 18 (Madie Anthony, RN) Monitor Mode: External; Palpation (Madie Anthony, RN) Frequency (min): 1-8 (Madie Anthony, RN) Quality: Mild/Moderate (Madie Anthony, RN) Duration (sec): 60-130 (Madie Atnhony, RN) Pattern: Normal: <= 5 Contractions in 10 Minutes (Madie Anthony, RN) Resting Tone (Palpate): Relaxed (Madie Anthony, RN) Monitor Mode: External US (Madie Anthony, RN) FHR Baseline Rate : 130 (Madie Anthony, RN) FHR Baseline Changes: No Baseline Change (Madie Anthony, RN) Variability: Moderate 6-25 bpm (Madie Anthony, RN) Accelerations: 15X15 (Madie Anthony, RN) Decelerations: None (Madie Anthony, RN) Communication: RN at Bedside; RN Reviewed Strip (Madie Anthony, RN) LaborFlag: Antepartum (QS system process) Datetime: 12/15/2016 23:26 NBP Sys/Solange/Mean (mmHg): 156 (QS system process) : 93 (QS system process) : 118 (QS system process) Pulse: 71 (QS system process) LaborFlag: Antepartum (QS system process) Datetime: 12/15/2016 23:23 I/O Interventions: Up to BR (Madie Anthony, RN) Datetime: 12/15/2016 23:20 Membrane Status: Intact (Madie Nathony, RN) IV/Blood Work: IV Started; IV Bolus Started (Madie Anthony, RN) Patient Care Comments: 18 gauge placed in R forearm on 4th attempt by Kavya Anderson RN. (Madie Anthony RN) Datetime: 12/15/2016 23:00 Stage of : Antepartum (Madie Anthony RN) Monitor Mode: External; Palpation (Madie Anthony, MARCELLUS) Frequency (min): 2-5 (Madie Anthony RN) Quality: Mild/Moderate (Madie Anthony RN) Duration (sec): 60-90 (Madie Anthony, MARCELLUS) Pattern: Normal: <= 5 Contractions in 10 Minutes (Madie Anthony RN) Resting Tone (Palpate): Relaxed (Madie Anthony RN) Monitor Mode: External US (Madie Anthony, MARCELLUS) FHR Baseline Rate : 130 (Madie Anthony, RN) FHR Baseline Changes: No Baseline Change (Madie Anthony, RN) Variability: Moderate 6-25 bpm (Madie Anthony, RN) Accelerations: 15X15 (Madie Anthony, RN) Decelerations: None (Madie Anthony, MARCELLUS) Communication: RN at Bedside; RN Reviewed Strip (Madie Anthony, MARCELLUS) Datetime: 12/15/2016 22:51 Stage of : Antepartum (Madie Anthony RN) Communication: Provider Orders Received (Madie Anthony RN) Communication Comments: Dr Terry given report re: pain, cervical exam and labs. Orders received to admit patient, give 25mcg cytotec PV q 4 hours until cervix reaches 3 cm, if pressure reaches 160/110 give 10mg labetalol IV. Epidural PRN. (Madie Anthony, MARCELLUS) Datetime: 12/15/2016 22:46 NBP Sys/Solange/Mean (mmHg): 156 (QS system process) : 93 (QS system process) : 119 (QS system process) Pulse: 67 (QS system process) I/O Interventions: Up to BR (Madie Anthony RN) LaborFlag: Antepartum (QS system process) Datetime: 12/15/2016 22:30 Stage of : Antepartum (Madie Anthony RN) NBP Sys/Solange/Mean (mmHg): 153 (QS system process) : 94 (QS system process) : 119 (QS system process) Pulse: 68 (QS system process) Monitor Mode: External; Palpation (Madie Anthony RN) Frequency (min): irregular (Madie Anthony RN) Quality: Mild/Moderate (Madie Anthony RN) Duration (sec): 40-120 (Madie Anthony RN) Pattern: Normal: <= 5 Contractions in 10 Minutes (Madie Anthony RN) Resting Tone (Palpate): Relaxed (Madie Anthony RN) Monitor Mode: External US (Madie Anthony RN) FHR Baseline Rate : 120 (Madie Anthony RN) FHR Baseline Changes: No Baseline Change (Madie Anthony RN) Variability: Minimal - Undetectable to <=5 bpm (Madie Anthony RN) Accelerations: 15X15 (Madie Anthony RN) Decelerations: None (Madie Anthony RN) Pain Scale: 2 (Madie Anthony RN) Pain Presence: Intermittent (Madie Anthony RN) Pain Type: Pressure; Ache (Madie Anthony RN) Pain Location: Back (Madie Anthony RN) Pain Goal: 1 (Madie Anthony RN) Pain Relief Measures: Comfort Measures (Madie Anthony RN) Pain Coping: Talking Through Contractions (Madie Anthony RN) Comfort Measures: Breathing/Relaxation; Family Support (Madie Anthony RN) Communication: RN at Bedside; RN Reviewed Strip (Madie Anthony RN) LaborFlag: Antepartum (QS system process) Datetime: 12/15/2016 22:12 Vital Sign Comments: Blood pressure cuff placed on L upper arm (Madie Anthony, RN) Patient Position/Activity: Right Lateral; Semi-Fowlers (Madie Anthony, RN) Datetime: 12/15/2016 22:11 Dilatation (cm): 1.5 (Madie Anthony, RN) Effacement (%): 60 (Madie Anthony, RN) Station: -1 (Madie Anthony, RN) Exam by: Tracee Anthony RN (Madie Anthony, RN) Vaginal Bleeding: None (Madie Anthony, RN) Cervix, Consistency: Moderate (Madie Anthony, RN) Cervix, Position: Midposition (Madie Anthony, RN) Datetime: 12/15/2016 22:10 NBP Sys/Solange/Mean (mmHg): 164 (QS system process) : 103 (QS system process) : 129 (QS system process) Pulse: 70 (QS system process) LaborFlag: Antepartum (QS system process) Datetime: 12/15/2016 22:00 Stage of : Antepartum (Madie Anthony RN) Monitor Mode: External; Palpation (Madie Anthony RN) Frequency (min): 2-4 (Madie Anthony RN) Quality: Mild/Moderate (Madie Anthony RN) Duration (sec): 60-150 (Madie Anthony RN) Pattern: Normal: <= 5 Contractions in 10 Minutes (Madie Anthony RN) Resting Tone (Palpate): Relaxed (Madie Anthony RN) Monitor Mode: External US (Madie Anthony RN) FHR Baseline Rate : 120 (Madie Anthony RN) FHR Baseline Changes: No Baseline Change (Madie Anthony RN) Variability: Moderate 6-25 bpm (Madie Anthony RN) Accelerations: 15X15 (Madie Anthony RN) Decelerations: None (Madie Anthony RN) Communication: RN at Bedside; RN Reviewed Strip (Madie Anthony RN)
[2016-12-16] MEDS ORDERED: MISOPROSTOL 0.2 MG TABLET ONE (08:49)
[2016-12-16] MEDS ORDERED: OXYTOCIN/NORMAL SALINE 20 UNIT/1,000 ML RTUINJ ONE ×2 (08:49→10:09)
[2016-12-16] MEDS ORDERED: LIDOCAINE 1% INJ-PF (10 MG/ML) 30 ML SDV ONE (08:49)
--- NOTE | 2016-12-16 10:01 | L&D Flow Sheet ---
LD Flowsheet Datetime Report Generated by CPN: 12/16/2016 10:00 Datetime: 12/16/2016 09:56 Pain Scale: 0 (Galilea Taynton, RN) Pain Presence: None/Denies (Galilea Taynton, RN) Pain Type: N/A (Galilea Taynton, RN) Pain Relief Measures: Comfort Measures (Galilea Taynton, RN) Datetime: 12/16/2016 09:40 NBP Sys/Solange/Mean (mmHg): 133 (QS system process) : 77 (QS system process) : 99 (QS system process) Pulse: 76 (QS system process) Datetime: 12/16/2016 09:27 Stage of : Recovery (Galilea Taynton, RN) Datetime: 12/16/2016 09:08 Comments: viable baby boy (Lyssa Danielleelliottpatricia, RN) Datetime: 12/16/2016 09:06 Pushing Position: Pushing with Contractions (Lyssa Glenny, RN) Pushing Progress: Descent with Pushing; with Pushing (Lyssa Marhefka, RN) Datetime: 12/16/2016 09:04 Pushing: Coached on Pushing (Lyssa Marhefka, RN) Pushing Position: Pushing with Contractions (Lyssa Marhefka, RN) Datetime: 12/16/2016 09:03 Comments: RN and provider @ bedside continuously monitoring FHTs while pt pushing. (Lyssa Marhefka, RN) Datetime: 12/16/2016 09:02 Patient Care Comments: Bed set up for delivery (Lyssa Murrieta, RN) Datetime: 12/16/2016 09:01 NBP Sys/Solange/Mean (mmHg): 147 (QS system process) : 88 (QS system process) : 112 (QS system process) Pulse: 97 (QS system process) LaborFlag: Antepartum (QS system process) Datetime: 12/16/2016 08:59 Communication: RN at Bedside; Provider at Bedside (Lyssa Wileyka, RN) Datetime: 12/16/2016 08:54 IV/Blood Work: New IV Bag Hung; IV Bag Number @ 2 (Galilea Franks, RN) Datetime: 12/16/2016 08:45 Dilatation (cm): 5.0 (Galilea Taychatoon, RN) Effacement (%): 80 (Galilea Franks, RN) Station: 2 (Galilea Franks, RN) Exam by: MARCELLUS Kothari (Galilea Taychatoon, RN) Vaginal Bleeding: Normal Show (Galilea Taychatoon, RN) Cervix, Position: Midposition (Galilea Taychatoon, RN) Datetime: 12/16/2016 08:31 NBP Sys/Solange/Mean (mmHg): 138 (QS system process) : 93 (QS system process) : 111 (QS system process) Pulse: 90 (QS system process) LaborFlag: Antepartum (QS system process) Datetime: 12/16/2016 08:28 Monitor Mode: External US (Galilea Franks RN) Monitor Interventions for FHR: Ultrasound Adjusted (Galilea Franks, RN) Datetime: 12/16/2016 08:24 Monitor Interventions for UA: [place] Adjusted (Galilea Franks, RN) Datetime: 12/16/2016 08:22 IV/Blood Work: IV Bolus Started (Galilea Franks RN) Procedure Type: Initial (Galilea Franks RN) Procedure Verify: Correct Patient Identity; Accurate Procedure Consent Form (Galilea Franks RN) Anesthesia Plans: Epidural (Galilea Taynton, RN) Anesthesia Comments: LR bolus bag #1 (Galilea Franks, RN) Datetime: 12/16/2016 08:18 Dilatation (cm): 4.0 (Galilea Franks, RN) Effacement (%): 90 (Galilea Franks, RN) Station: 0 (Galilea Franks, RN) Exam by: José Macedo CNM (Galilea Franks, RN) Membrane Status: Ruptured (Galilea Franks, RN) Membranes Rupture Method: Artificial (Galilea Maneon, RN) Amniotic Fluid Color: Clear (Galilea Taychatoon, RN) Amniotic Fluid Amount: Small (Galilea Taychat[place], RN) Amniotic Fluid Odor: None (Galilea Taychatoon, RN) Cervix, Consistency: Soft (Galilea Taychatoon, RN) Cervix, Position: Midposition (Galilea Taychatoon, RN) Datetime: 12/16/2016 08:02 NBP Sys/Solange/Mean (mmHg): 165 (QS system process) : 105 (QS system process) : 128 (QS system process) Pulse: 73 (QS system process) LaborFlag: Antepartum (QS system process)
[2016-12-16] MEDS ORDERED: DIPH/PERTUSS(ACELL)/TETANUS VAC/PF 0.5 ML SYR (>=10YO) IM PRN (10:51)
[2016-12-16] MEDS ORDERED: ZOLPIDEM TARTRATE 5 MG TABLET PO PRN (10:51)
[2016-12-16] MEDS ORDERED: DIBUCAINE 1% OINTMENT 28 GM TP PRN (10:51)
[2016-12-16] MEDS ORDERED: OXYTOCIN/NORMAL SALINE 1,000 ML IV PRN (10:51)
[2016-12-16] MEDS ORDERED: MEASLES,MUMPS&RUBELLA VACC/PF 0.5 ML VIAL SUBCUT PRN (10:51)
[2016-12-16] MEDS ORDERED: BENZOCAINE/MENTHOL AEROSOL SPRAY 56 ML TOP PRN (10:51)
[2016-12-16] MEDS ORDERED: ACETAMINOPHEN WITH CODEINE #3 TABLET PO PRN ×2 (10:51)
--- NOTE | 2016-12-16 11:22 | Admission Physical ---
Datetime Report Generated by CPN: 12/16/2016 11:22 CURRENT ADMISSION Chief Complaint: Uterine Contractions Indication for Induction: Not Applicable Admit Impression- Other: Severe Range Blood Pressure Admit Plan: Admit to Unit; Initiate Labor Induction Protocol ALLERGIES Medication Allergies: No Medication Allergies: No Known Allergies (12/15/2016) Latex: No Latex Allergies Food Allergies: none Environmental Allergies: none OBSTETRICAL HISTORY EDC: 12/22/2016 00:00 : 3 Para: 0 Term: 0 : 0 SAB: 1 IAB: 1 Ectopic: 0 Livin Cesareans: 0 VBACs: 0 Multiple Births: 0 Gestational Diabetes: No Rh Sensitization: No Incompetent Cervix: No LOPEZ: No Infertility: No ART Treatment: No Uterine Anomaly: No IUGR: No Hx Previous C/S: No Macrosomia: No Hx Loss/Stillborn: No PIH: No Hx : No Placenta Previa/Abruption: No Depression/PP Depression: No PTL/PROM: No Post Hemorrhage: No Current Procedures: Ultrasound; NST Obstetrical History Comments: G1: IEB 2013 G2: SAB 2014 G3: current SEE RECORDS Alcohol: No Marijuana : No Cocaine: No Other Illicit Drugs: No Cigarettes: Never Smoker. 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: No Heart Disease: No Hosp/Surgery: No Autoimmune Disorder: No Anesthetic Complications: No Kidney Disease: No Abnormal Pap Smear: No Neuro/Epilepsy: No Psychiatric Disorders: No Other Medical Diseases: No Hepatitis/Liver Disease: No Significant Family History: No Varicosities/Phlebitis: No Trauma/Violence : No Thyroid Dysfunction: No Medical History Comments: Asthma (Albuterol) INFECTIOUS HISTORY Gonorrhea: No Genital Herpes: No Chlamydia: No Tuberculosis: No Syphilis: No Hepatitis: No HIV/AIDS Exposure: No Rash or Viral Illness: No HPV: No PHYSICAL EXAM General: Normal HEENT: Normal Neurologic: Normal Thyroid: Deferred Heart: Normal Lungs: Normal Breast: Deferred Back: Normal Abdomen: Normal Genitourinary Exam: Normal Extremities: Normal DTRs: Normal Pelvic Type: Adequate Vital Signs: Reviewed Details Vital Signs: severe range BP VAGINAL EXAM Dilatation: 2 Effacement: 60 Station: -1 MEMBRANES Membranes: Intact FETUS A EGA: 39.0 Monitoring: External US FHR- Baseline: 130 Variability: Moderate 6-25bpm Accelerations: 15X15 Decelerations: None FHR Category: Category I PLANS FOR LABOR AND DELIVERY Feeding Preference: Breast Benefit of Breast Feed Discussed: Yes Circumcision: No INFORMED CONSENT Signature: with User ID: [email or web address]
[2016-12-16] MEDS: IBUPROFEN 800 MG TABLET PO SCH ×2 (13:30→23:01)
[2016-12-16] MEDS: FERROUS SULFATE 325 MG TABLET PO SCH (17:45)
[2016-12-16] MEDS: DOCUSATE SODIUM 100 MG CAPSULE PO SCH (17:45)
--- NOTE | 2016-12-16 19:01 | L&D Flow Sheet ---
LD Flowsheet Datetime Report Generated by CPN: 12/16/2016 19:00 Datetime: 12/16/2016 11:10 Respirations: 18 (Galilea Golden, ) Temperature (F): 98.2 (Galilea Taymorena, RN) Temperature (C): 36.8 (QS system process) Temperature Route: Oral (Galilea Golden, RN) Pain Scale: 0 (Galilea Franks, RN) Pain Presence: None/Denies (Galilea Taychatoon, RN) Pain Type: N/A (Galilea Taychatoon, RN) Datetime: 12/16/2016 11:09 NBP Sys/[place]ange/Mean (mmHg): 135 (QS system process) : 93 (QS system process) : 110 (QS system process) Pulse: 71 (QS system process) Datetime: 12/16/2016 11:01 NBP Sys/[place]/Mean (mmHg): 156 (QS system process) : 99 (QS system process) : 123 (QS system process) Pulse: 68 (QS system process) Datetime: 12/16/2016 10:31 NBP Sys/Solange/Mean (mmHg): 150 (QS system process) : 94 (QS system process) : 117 (QS system process) Pulse: 68 (QS system process) Datetime: 12/16/2016 10:25 Respirations: 17 (Galilea Taynton, RN) Temperature (F): 98.2 (Galilea Taynton, RN) Temperature (C): 36.8 (QS system process) Temperature Route: Oral (Galilea Taynton, RN) Pain Scale: 0 (Galilea Taynton, RN) Pain Presence: None/Denies (Galilea Taynton, RN) Pain Type: N/A (Galilea Taynton, RN) Datetime: 12/16/2016 10:18 NBP Sys/[place]/Mean (mmHg): 146 (QS system process) : 91 (QS system process) : 113 (QS system process) Pulse: 73 (QS system process) Datetime: 12/16/2016 09:56 Pain Scale: 0 (Galilea Taynton, RN) Pain Presence: None/Denies (Galilea Taynton, RN) Pain Type: N/A (Galilea Taynton, RN) Pain Relief Measures: Comfort Measures (Galilea Taynton, RN) Datetime: 12/16/2016 09:40 NBP Sys/[place]/Mean (mmHg): 133 (QS system process) : 77 (QS system process) : 99 (QS system process) Pulse: 76 (QS system process) Datetime: 12/16/2016 09:27 Stage of : Recovery (Galilea Taynton, RN) Datetime: 12/16/2016 09:08 Monitor Mode: External; Palpation (Galilea Taynton, RN) Frequency (min): 1-2 (Galilea Taynton, RN) Quality: Moderate to Strong (Galilea Taynton, RN) Duration (sec): 40-100 (Galilea Taynton, RN) Resting Tone (Palpate): Relaxed (Galilea Taynton, RN) Monitor Mode: External US (Galilea Taynton, RN) Variability: Moderate 6-25 bpm (Galilea Taynton, RN) Comments: inconclusive; see previous assessment for baseline (Galilea Taynton, RN) Comments: viable baby boy (Lyssa Murrieta, RN) Datetime: 12/16/2016 09:06 Pushing Position: Pushing with Contractions (Lyssa Katiafka, RN) Pushing Progress: Descent with Pushing; with Pushing (Lyssa Marelliottfka, RN) Datetime: 12/16/2016 09:04 Pushing: Coached on Pushing (Lyssa Marhefka, RN) Pushing Position: Pushing with Contractions (Lyssa Marhefka, RN) Datetime: 12/16/2016 09:03 Comments: RN and provider @ bedside continuously monitoring FHTs while pt pushing. (Lyssa Marelliottfka, RN) Datetime: 12/16/2016 09:02 Patient Care Comments: Bed set up for delivery (Lyssa Marelliottfka, RN) Datetime: 12/16/2016 09:01 NBP Sys/Solange/Mean (mmHg): 147 (QS system process) : 88 (QS system process) : 112 (QS system process) Pulse: 97 (QS system process) LaborFlag: Antepartum (QS system process) Datetime: 12/16/2016 09:00 Monitor Mode: External; Palpation (Galilea Taynton, RN) Frequency (min): 2-3 (Galilea Taynton, RN) Quality: Moderate to Strong (Galilea Taynton, RN) Duration (sec): 50-100 (Galilea Taynton, RN) Resting Tone (Palpate): Relaxed (Galilea Taynton, RN) Monitor Mode: External US (Galilea Taynton, RN) FHR Baseline Rate : 120 (Galilea Taynton, RN) Variability: Moderate 6-25 bpm (Galilea Taynton, RN) Accelerations: 15X15 (Galilea Taynton, RN) Datetime: 12/16/2016 08:59 Communication: RN at Bedside; Provider at Bedside (Lyssa Murrieta RN) Datetime: 12/16/2016 08:54 IV/Blood Work: New IV Bag Hung; IV Bag Number @ 2 (Galilea Taynton, RN) Datetime: 12/16/2016 08:45 Monitor Mode: External US (Galilea Taychatoon, RN) FHR Baseline Rate : 135 (Galilea Taynton, RN) Variability: Moderate 6-25 bpm (Galilea Taynton, RN) Accelerations: 15X15 (Galilea Taynton, RN) Dilatation (cm): 5.0 (Galilea Taynton, RN) Effacement (%): 80 (Galilea Taynton, RN) Station: 2 (Galilea Taynton, RN) Exam by: MARCELLUS Kothari (Galilea Taynton, RN) Vaginal Bleeding: Normal Show (Galilea Taynton, RN) Cervix, Position: Midposition (Galilea Taynton, RN) Datetime: 12/16/2016 08:31 NBP Sys/Solange/Mean (mmHg): 138 (QS system process) : 93 (QS system process) : 111 (QS system process) Pulse: 90 (QS system process) LaborFlag: Antepartum (QS system process) Datetime: 12/16/2016 08:30 Monitor Mode: External; Palpation (Galilea Franks, RN) Frequency (min): 2-7 (Galilea Taynton, RN) Quality: Moderate to Strong (Galilea Taynton, RN) Duration (sec): 50-70 (Galilea Taynton, RN) Resting Tone (Palpate): Relaxed (Galilea Taynton, RN) Monitor Mode: External US (Galilea Taynton, RN) FHR Baseline Rate : 130 (Galilea Taynton, RN) Variability: Moderate 6-25 bpm (Galilea Taynton, RN) Accelerations: None (Galilea Taynton, RN) Decelerations: None (Galilea Taynton, RN) Pain Type: Contraction (Galilea Taynton, RN) Pain Location: Abdomen (Galilea Taynton, RN) Patient Position/Activity: Left Lateral (Galilea Taynton, RN) LaborFlag: Antepartum (QS system process) Datetime: 12/16/2016 08:29 Patient Position/Activity: Right Lateral (Galilea Taynton, RN) Datetime: 12/16/2016 08:28 Monitor Mode: External US (Galilea Taynton, RN) Monitor Interventions for FHR: Ultrasound Adjusted (Galilea Taynton, RN) Datetime: 12/16/2016 08:24 Monitor Interventions for UA: [place] Adjusted (Galilea Taynton, RN) Datetime: 12/16/2016 08:22 IV/Blood Work: IV Bolus Started (Galilea Franks RN) Procedure Type: Initial (Galilea Franks RN) Procedure Verify: Correct Patient Identity; Accurate Procedure Consent Form (Galilea Franks RN) Anesthesia Plans: Epidural (Galilea Franks RN) Anesthesia Comments: LR bolus bag #1 (Galilea Franks RN) Datetime: 12/16/2016 08:18 Dilatation (cm): 4.0 (Galilea Franks RN) Effacement (%): 90 (Galilea Franks RN) Station: 0 (Galilea Franks RN) Exam by: José Macedo CNM (Galilea Franks RN) Membrane Status: Ruptured (Galilea Franks RN) Membranes Rupture Method: Artificial (Galilea Franks RN) Amniotic Fluid Color: Clear (Galilea Franks RN) Amniotic Fluid Amount: Small (Galilea Franks RN) Amniotic Fluid Odor: None (Galilea Franks RN) Cervix, Consistency: Soft (Galilea Franks RN) Cervix, Position: Midposition (Galilea Franks RN) Datetime: 12/16/2016 08:15 Monitor Mode: External; Palpation (Galilea Taynton, RN) Frequency (min): 1-3 (Galilea Taynton, RN) Quality: Moderate to Strong (Galilea Taynton, RN) Duration (sec): 40-100 (Galilea Taynton, RN) Resting Tone (Palpate): Relaxed (Galilea Taynton, RN) Monitor Mode: External US (Galilea Taynton, RN) FHR Baseline Rate : 135 (Galilea Taynton, RN) Variability: Moderate 6-25 bpm (Galilea Taynton, RN) Accelerations: 15X15 (Galilea Taynton, RN) Datetime: 12/16/2016 08:02 NBP Sys/Solange/Mean (mmHg): 165 (QS system process) : 105 (QS system process) : 128 (QS system process) Pulse: 73 (QS system process) LaborFlag: Antepartum (QS system process) Datetime: 12/16/2016 08:00 Monitor Mode: External; Palpation (Galilea Taynton, RN) Frequency (min): 1-2 (Galilea Taynton, RN) Quality: Moderate to Strong (Galilea Taynton, RN) Duration (sec): 60-100 (Galilea Taynton, RN) Resting Tone (Palpate): Relaxed (Galilea Taynton, RN) Monitor Mode: External US (Galilea Taynton, RN) FHR Baseline Rate : 140 (Galilea Taynton, RN) Variability: Moderate 6-25 bpm (Galilea Taynton, RN) Accelerations: 15X15 (Galilea Taynton, RN) Datetime: 12/16/2016 07:45 Monitor Mode: External; Palpation (Galilea Taynton, RN) Frequency (min): 1-3 (Galilea Taynton, RN) Quality: Mild/Moderate (Galilea Taynton, RN) Duration (sec): 40-100 (Galilea Taynton, RN) Resting Tone (Palpate): Relaxed (Galilea Taynton, RN) Monitor Mode: External US (Galilea Taynton, RN) FHR Baseline Rate : 135 (Galilea Taynton, RN) Variability: Moderate 6-25 bpm (Galilea Taynton, RN) Accelerations: 15X15 (Galilea Taynton, RN) Decelerations: None (Galilea Taynton, RN) Datetime: 12/16/2016 07:31 NBP Sys/Solange/Mean (mmHg): 146 (QS system process) : 97 (QS system process) : 117 (QS system process) Pulse: 67 (QS system process) LaborFlag: Antepartum (QS system process) Datetime: 12/16/2016 07:30 Monitor Mode: External; Palpation (Galilea Taynton, RN) Frequency (min): 1-2 (Galilea Taynton, RN) Quality: Mild/Moderate (Galilea Taynton, RN) Duration (sec): 40-60 (Galilea Taynton, RN) Resting Tone (Palpate): Relaxed (Galilea Taynton, RN) Monitor Mode: External US (Galilea Taynton, RN) FHR Baseline Rate : 140 (Galilea Taynton, RN) Variability: Minimal - Undetectable to <=5 bpm (Galilea Taynton, RN) Accelerations: None (Galilea Franks, RN) Decelerations: None (Galilea Taynton, RN) Datetime: 12/16/2016 07:15 Monitor Mode: External; Palpation (Galilea Franks RN) Monitor Interventions for UA: [place] Adjusted (Galilea Franks RN) Frequency (min): x0 (Galilea Franks RN) Quality: Mild/Moderate (Galilea Fransk RN) Resting Tone (Palpate): Relaxed (Galilea Franks RN) Monitor Mode: External US (Galilea Franks RN) FHR Baseline Rate : 140 (Galilea Franks, RN) Variability: Minimal - Undetectable to <=5 bpm (Galilea Franks RN) Accelerations: None (Galilea Franks, RN) Decelerations: None (Galilea Franks, RN) I/O Interventions: Up to BR (Galilea Franks RN) Communication: RN at Bedside (Galilea Franks RN) Communication Comments: Bedside report received from Tracee Anthony RN; plan of care discussed with patient. Patient verbalized understanding (Galilea Franks RN) Datetime: 12/16/2016 07:01 NBP Sys/Solange/Mean (mmHg): 139 (QS system process) : 93 (QS system process) : 112 (QS system process) Pulse: 68 (QS system process) LaborFlag: Antepartum (QS system process) Datetime: 12/16/2016 07:00 Stage of : Antepartum (Madie Anthony RN) Monitor Mode: External (Madie Anthony, RN) Frequency (min): irregular (Madie Anthony, MARCELLUS) Quality: Mild/Moderate (Madie Anthony, RN) Pattern: Normal: <= 5 Contractions in 10 Minutes (Madie Anthony RN) Resting Tone (Palpate): Relaxed (Madie Anthony RN) Monitor Mode: External US (Madie Anthony, MARCELLUS) FHR Baseline Rate : 140 (Madie Anthony RN) FHR Baseline Changes: No Baseline Change (Madie Anthony RN) Variability: Moderate 6-25 bpm (Madie Anthony, RN) Accelerations: 15X15 (Madie Anthony, RN) Decelerations: Early (Madie Anthony, RN) Communication: RN Reviewed Strip (Madie Anthony RN)
[2016-12-17] MEDS: IBUPROFEN 800 MG TABLET PO SCH ×3 (05:37→21:02)
--- NOTE | 2016-12-17 06:01 | L&D Current Admission ---
Current Admit Datetime Report Generated by CPN: 12/17/2016 06:00 ADMISSION INFORMATION Current Admit Date/Time: 12/15/2016 23:00 (12/16/2016 00:36:Madie Anthony RN) Reason for Admission: Induction of Labor (12/16/2016 00:36:Madie Anthony RN) Chief Complaint: Contractions (12/16/2016 00:36:Madie Anthony RN) Medications During : Albuterol MDI; Vitamin (12/16/2016 00:36:Madie Anthony RN) EGA per Dates: 39.0 (12/16/2016 00:36:QS system process) Method of Arrival: Wheelchair (12/16/2016 00:36:Madie Anthony RN) Admitted From: Home (12/16/2016 00:36:Madie Anthony RN) Reason for Induction: Other (12/16/2016 00:36:Madie Anthony RN) Reason for Induction- Other: Increased blookd pressures with no history (12/16/2016 00:36:Madie Anthony RN) Records Available: Yes (12/16/2016 00:36:Madie Anthony RN) General Admission Information: Reviewed (12/16/2016 00:36:Madie Anthony RN) BELONGINGS/ADVANCED DIRECTIVES Comments Regarding Disposition: see [facility] consent form (12/16/2016 00:36:Madie Anthony RN) Advance Direct for Healthcare: Yes, Placed on Chart (12/16/2016 00:36:Madie Anthony RN) Durable Power of Manager Of Enterprise: No (12/16/2016 00:36:Madie Anthony RN) Living Will: No (12/16/2016 00:36:Madie Anthony RN) Organ Donor: No (12/16/2016 00:36:Madie Anthony RN) Pt Rights Information Given: Yes (12/16/2016 00:36:Madie Anthony RN) Pt Understands Pt Rights: Yes (12/16/2016 00:36:Madie Anthony RN) LEARNING ASSESSMENT Knowledge Level: Understands L_D Process (12/16/2016 00:36:Madie Anthony RN) Barriers to Learning: None (12/16/2016 00:36:Madie Anthony RN) Learning Readiness: Motivated (12/16/2016 00:36:Madie Anthony RN) Learns Best By: 1 to 1 Instruction; Reading; Videos; Demonstration (12/16/2016 00:36:Madie Anthony RN) Learning Needs: Labor and Delivery Process (12/16/2016 00:36:Madie Anthony RN) DOMESTIC VIOLANCE SCREENING Dom Viol Threatened/Hurt: No (12/16/2016 00:36:Madie Anthony RN) Hx of Abuse/Neglect past 2yrs: No (12/16/2016 00:36:Madie Anthony RN) Feel Unsafe Going Home: No (12/16/2016 00:36:Madie Anthony RN) Addt'l Observ Indicating Abuse: No (12/16/2016 00:36:Madie Anthony RN) Reason Unable to Complete Screen: N/A, Screen Completed (12/16/2016 00:36:Madie Anthony RN) Considered Personal Harm/Suicide: No (12/16/2016 00:36:Madie Anthony RN) NUTRITIONAL/FUNCTIONAL SCREENING Problem with Appetite >5 Days: No (12/16/2016 00:36:Madie Anthony RN) Chew/Swallow Difficulties: No (12/16/2016 00:36:Madie Anthony RN) Inappropriate Wt Gain/Loss: No (12/16/2016 00:36:Madie Anthony RN) Presence Skin Breakdown/Ulcer: No (12/16/2016 00:36:Madie Anthony RN) Special Diet: No (12/16/2016 00:36:Madie Anthony RN) Pt Requests Financial Dealers Visit: No (12/16/2016 00:36:Madie Anthony RN) Hx of Any of the Following?: N/A (12/16/2016 00:36:Madie Anthony RN) New Diagnosis of: N/A (12/16/2016 00:36:Madie Anthony RN) Requires Assist w/Ambulation: No (12/16/2016 00:36:Madie Anthony RN) Uses Assist Device to Ambulate: No (12/16/2016 00:36:Madie Anthony RN) Pt Requires Help w/ADL's: No (12/16/2016 00:36:Madie Anthony RN)
--- NOTE | 2016-12-17 06:01 | L&D General Admission ---
General Admit Datetime Report Generated by CPN: 12/17/2016 06:00 INFORMATION Patient Age: 21 (11/23/2016 13:17:QS system process) EDC: 12/22/2016 00:00 (11/23/2016 13:19:Maliha Tatum RN) : 3 (11/23/2016 13:19:Maliha Tatum RN) Para: 0 (11/23/2016 14:24:Maliha Tatum RN) Term: 0 (11/23/2016 13:19:Lily Beltre RN) : 0 (11/23/2016 13:19:Lily Beltre RN) Spontaneous Abortions: 1 (11/23/2016 13:19:Maliha Tatum RN) Induced Abortions: 1 (11/23/2016 13:19:Maliha Tatum RN) Livin (11/23/2016 13:19:Maliha Tatum RN) Cesareans: 0 (11/23/2016 13:19:Lily Beltre RN) VBACs: 0 (11/23/2016 13:19:Lily Beltre RN) Ectopic: 0 (11/23/2016 13:19:Lily Beltre RN) Multiple Births: 0 (11/23/2016 13:19:Lily Beltre RN) Baby, Number in Womb: 1 (11/23/2016 14:24:Maliha Tatum RN) CARE Primary Project Developer: [facility] (11/23/2016 13:19:Maliha Tatum RN) Month of 1st Visit: May (11/23/2016 13:19:Maliha Tatum RN) Adequate Care: Yes (11/23/2016 13:19:Maliha Tatum RN) Prepregnancy Weight (lb): 110 (11/23/2016 13:19:Maliha Tatum RN) Prepregnancy Weight (kg): 50.0 (11/23/2016 13:19:QS system process) Height (in): 65 (11/23/2016 14:09:QS system process) ALLERGIES Medication Allergy: No (11/23/2016 13:19:Maliha Tatum RN) Medication Allergies: No Known Allergies (12/15/2016) (12/15/2016 21:35:QS system process) Latex Allergy: No Latex Allergies (11/23/2016 13:19:Maliha Tatum RN) Food Allergies: none (11/23/2016 13:19:Madie Anthony RN) Environmental Allergies: none (11/23/2016 13:19:Madie Anthony RN) COMMUNICATION Primary Language: [place] Islander (11/23/2016 13:19:Maliha Tatum RN) Medical Tx Preferred Language: [place] Islander (11/23/2016 13:19:Lily Beltre RN) Communication Barrier(s): None (11/23/2016 13:19:Lily Beltre RN) DEMOGRAPHICS Address: [address] [place] [id number] (11/23/2016 13:17:QS system process) Zipcode: [address] (11/23/2016 13:17:QS system process) Home (11/23/2016 13:17:QS system process) SSN: [id number] (11/23/2016 13:17:QS system process) Next of Kin Name: BENITO DAIGLE (11/23/2016 13:17:QS system process) Next of Kin (11/23/2016 13:17:QS system process) Next of Kin Relationship: SPO (11/23/2016 13:17:QS system process) Date of : 1995 (11/23/2016 13:17:QS system process) Marital Status: (11/23/2016 13:17:QS system process) Sex: Female (11/23/2016 13:17:QS system process) Race: Other (11/23/2016 13:17:QS system process) Ethnicity: or (11/23/2016 13:17:QS system process) Christian: None (11/23/2016 13:17:QS system process) DRUG AND ALCOHOL USE Alcohol: No (11/23/2016 13:19:Maliha Tatum RN) Cigarettes: Never Smoker. [id number] (11/23/2016 13:19:Maliha Tatum RN) Marijuana: No (11/23/2016 13:19:Maliha Tatum RN) Cocaine: No (11/23/2016 13:19:Maliha Tatum RN) Other Illicit Drugs: No (11/23/2016 13:19:Maliha Tatum RN) VACCINE HISTORY Influenza Vaccine: Yes (11/23/2016 13:19:Maliha Tatum RN) Influenza Date: 08/2016 (11/23/2016 13:19:Maliha Tatum RN) Pneumococcal Vaccine: No (11/23/2016 13:19:Maliha Tatum RN) Tetanus Vaccine: Yes (11/23/2016 13:19:Maliha Tatum RN) Tetanus Date: 09/2016 (11/23/2016 13:19:Maliha Tatum RN) Tdap Vaccine: Yes (11/23/2016 13:19:Maliha Tatum RN) Tdap Date: 09/2016 (11/23/2016 13:19:Maliha Tatum RN) Hepatitis B Vaccine: Uncertain (11/23/2016 13:19:Maliha Tatum RN) Patch Setter: [facility] (11/23/2016 13:19:Zaina Márquez RN) Feeding Preference: Breast (11/23/2016 13:19:Galilea Franks RN) Benefit of Breast Feed Discussed: Yes (11/23/2016 13:19:Maliha Tatum RN) Circumcision: No (11/23/2016 13:19:Maliha Tatum RN) Classes Attended: No (11/23/2016 13:19:Maliha Tatum RN) Tubal Ligation: No (11/23/2016 13:19:Maliha Tatum RN) Tubal Authorization Signed: N/A (11/23/2016 13:19:Maliha Tatum RN) Consent: N/A (11/23/2016 13:19:Maliha Tatum RN) Consent Signed: N/A (11/23/2016 13:19:Maliha Tatum RN) Support Person: Benito Daigle (11/23/2016 13:19:Maliha Tatum RN) Support Person Relationship: Significant Other (11/23/2016 13:19:Maliha Tatum RN) Cultural/Spritual Practice: No (11/23/2016 13:19:Maliha Tatum RN) Spir/Cult Dietary Needs: No (11/23/2016 13:19:Maliha Tatum RN) LIVING SITUATION/DISCHARGE PLAN Living Arrangements: House (11/23/2016 13:19:Maliha Tatum RN) Adequate Access to:: Electric; Heat; Refrigeration; Plumbing/Running water; Phone; Transportation (11/23/2016 13:19:Maliha Tautm RN) WIC Program: No (11/23/2016 13:19:Maliha Tatum RN) Discharge Catering Operations Manager Person: Benito (11/23/2016 13:19:Maliha Tatum RN) Person to Help after Discharge: Benito (11/23/2016 13:19:Maliha Tatum RN) Currently Using Commun Resources: No (11/23/2016 13:19:Maliha Tatum RN) Outside Agency/Supervisor [employer] Pl[employer]: No (11/23/2016 13:19:Maliha Tatum RN) Car Seat for Discharge: Yes (11/23/2016 13:19:Maliha Tatum RN) Adoption Requested: No (11/23/2016 13:19:Maliha Tatum RN) Pt Contact w/infant Post : N/A (11/23/2016 13:19:Maliha Tatum RN) LABS Blood Type: A Positive (11/23/2016 13:19:Maliha Tatum RN) Antibody Screen: Negative (11/23/2016 13:19:Maliha Tatum RN) Rho(G) this : Not Applicable (11/23/2016 13:19:Lily Beltre RN) Hemoglobin: 11.8 L (12/15/2016 22:02:QS system process) Hematocrit: 34.1 L (12/15/2016 22:02:QS system process) MCV: 88 (12/15/2016 22:02:QS system process) Group Beta Strep: Negative (11/23/2016 13:19:Lily Beltre RN) Gonorrhea: Negative (11/23/2016 13:19:Maliha Tatum RN) Chlamydia: Negative (11/23/2016 13:19:Maliha Tatum RN) RPR/VDRL: Nonreactive (11/23/2016 13:19:Maliha Tatum RN) HIV Exposure Test: Negative (11/23/2016 13:19:Maliha Tatum RN) Hepatitis B: Negative (11/23/2016 13:19:Maliha Tatum RN) Rubella: Immune (11/23/2016 13:19:Maliha Tatum RN) OB/PREVIOUS HISTORY Previous Procedures: None (11/23/2016 13:19:Lily Beltre RN) Current Procedures: Ultrasound; NST (11/23/2016 13:19:Maliha Tatum RN) History of Previous : No (11/23/2016 13:19:Maliha Tatum RN) History of Gestational Diabetes: No (11/23/2016 13:19:Maliha Tatum RN) History of PIH: No (11/23/2016 13:19:Maliha Tatum RN) History of Incompetent Cervix: No (11/23/2016 13:19:Maliha Tatum RN) History of Placenta Previa/Abrup: No (11/23/2016 13:19:Maliha Tatum RN) History of Macrosomia: No (11/23/2016 13:19:Maliha Tatum RN) History of IUGR: No (11/23/2016 13:19:Maliha Tatum RN) History of Hemorrhage: No (11/23/2016 13:19:Maliha Tatum RN) History of Loss/Stillborn: No (11/23/2016 13:19:Maliha Tatum RN) History of : No (11/23/2016 13:19:Maliha Tatum RN) History of D (Rh) Sensitization: No (11/23/2016 13:19:Maliha Tatum RN) History Recurrent Loss/Stillborn: No (11/23/2016 13:19:Maliha Tatum RN) History Depression/PP Depression: No (11/23/2016 13:19:Maliha Tatum RN) History of Uterine Anomaly/LOPEZ: No (11/23/2016 13:19:Maliha Tatum RN) History of Infertility: No (11/23/2016 13:19:Maliha Tatum RN) History of ART Treatment: No (11/23/2016 13:19:Maliha Tatum RN) History of LOPEZ: No (11/23/2016 13:19:Maliha Tatum RN) Comments Obstetrical History: G1: IEB 2013 G2: SAB 2014 G3: current (11/23/2016 13:19:Maliha Tatum RN) MEDICAL HISTORY Med Hx Diabetes: No (11/23/2016 13:19:Maliha Tatum RN) Med Hx Hypertension: No (11/23/2016 13:19:Maliha Tatum RN) Med Hx Heart Disease: No (11/23/2016 13:19:Maliha Tatum RN) Med Hx Autoimmune Disorder: No (11/23/2016 13:19:Maliha Tatum RN) Med Hx Kidney Disease/UTI: No (11/23/2016 13:19:Maliha Tatum RN) Med Hx Neurologic/Epilepsy: No (11/23/2016 13:19:Maliha Tatum RN) Med Hx Psychiatric Disorders: No (11/23/2016 13:19:Maliha Tatum RN) Med Hx Hepatitis/Liver Disease: No (11/23/2016 13:19:Maliha Tatum RN) Med Hx Varicosities/Phlebitis: No (11/23/2016 13:19:Maliha Tatum RN) Med Hx Thyroid Dysfunction: No (11/23/2016 13:19:Maliha Tatum RN) Med Hx Trauma/Violence: No (11/23/2016 13:19:Maliha Tatum RN) Med Hx Blood Transfusion: No (11/23/2016 13:19:Maliha Tatum RN) Med Hx Pulmonary (Asthma,TB): Yes (11/23/2016 13:19:Maliha Tatum RN) Med Hx Breast: No (11/23/2016 13:19:Maliha Tatum RN) Med Hx OUTDOOR PURSUITS INSTRUCTOR Surgery: No (11/23/2016 13:19:Maliha Tatum RN) Med Hx Hospitalization/Surgery: No (11/23/2016 13:19:Maliha Tatum RN) Med Hx Anesthetic Complications: No (11/23/2016 13:19:Maliha Tatum RN) Med Hx Abnormal Pap Smear: No (11/23/2016 13:19:Maliha Tatum RN) Other Medical Diseases: No (11/23/2016 13:19:Maliha Tatum RN) Med Hx Significant Family Hx: No (11/23/2016 13:19:Maliha Tatum RN) Details of Med/Surg Hx: Asthma (Albuterol) (11/23/2016 13:19:Maliha Tatum RN) INFECTIOUS HISTORY Inf Hx Gonorrhea: No (11/23/2016 13:19:Maliha Tatum RN) Inf Hx Chlamydia: No (11/23/2016 13:19:Maliha Tatum RN) Inf Hx Syphilis: No (11/23/2016 13:19:Maliha Tatum RN) Inf Hx HIV/AIDS: No (11/23/2016 13:19:Maliha Tatum RN) Inf Hx Human Papilloma Virus: No (11/23/2016 13:19:Maliha Tatum RN) Inf Hx Pt/Partner Genital Herpes: No (11/23/2016 13:19:Maliha Tatum RN) Inf Hx Tuberculosis/Exposure: No (11/23/2016 13:19:Maliha Tatum RN) Inf Hx Hepatitis B,C: No (11/23/2016 13:19:Maliha Tatum RN) Inf Hx Rash or Viral Illness: No (11/23/2016 13:19:Maliha Tatum RN) GENETIC HISTORY Gen Hx Age >=35 at KALEN: No (11/23/2016 13:19:Maliha Tatum RN) Gen Hx Thalassemia: No (11/23/2016 13:19:Maliha Tatum RN) Gen Hx Congenital Heart Defect: No (11/23/2016 13:19:Maliha Tatum RN) Gen Hx Neural Tube Defect: No (11/23/2016 13:19:Maliha Tatum RN) Gen Hx Down's Syndrome: No (11/23/2016 13:19:Maliha Tatum RN) Gen Hx Guevara-Sachs: No (11/23/2016 13:19:Maliha Tatum RN) Gen Hx Caren: No (11/23/2016 13:19:Maliha Tatum RN) Gen Hx Familial Dysautonomia: No (11/23/2016 13:19:Maliha Tatum RN) Gen Hx Sickle Cell Disease/Trait: No (11/23/2016 13:19:Maliha Tatum RN) Gen Hx Hemophilia/Blood Disorder: No (11/23/2016 13:19:Maliha Tatum RN) Gen Hx Muscular Dystrophy: No (11/23/2016 13:19:Maliha Tatum RN) Gen Hx Cystic Fibrosis: No (11/23/2016 13:19:Maliha Tatum RN) Gen Hx Huntingtons Chorea: No (11/23/2016 13:19:Maliha Tatum RN) Gen Hx Mental Retardation/Autism: No (11/23/2016 13:19:Maliha Tatum RN) Gen Hx Tested for Fragile X: No (11/23/2016 13:19:Maliha Tatum RN) Gen Hx Other Inher/Chromosomal: No (11/23/2016 13:19:Maliha Tatum RN) Gen Hx Maternal Metabolic DO: No (11/23/2016 13:19:Maliha Tatum RN) Gen Hx Pt Father or FOB Defect: No (11/23/2016 13:19:Maliha Tatum RN) Gen Hx Other Genetic History: No (11/23/2016 13:19:Maliha Tatum RN) Gen Hx Drugs/Meds since LMP: Yes (11/23/2016 13:19:Maliha Tatum RN) Gen Hx Medications: PNV, albuterol, tylenol (11/23/2016 13:19:Maliha Tatum RN)
--- NOTE | 2016-12-17 06:16 | L&D Care Plan ---
LD CARE PLANS Datetime Report Generated by CPN: 12/17/2016 06:15 Datetime: 12/15/2016 22:52 Pain State: Risk For (Zaina Márquez RN) Related To: Labor and Delivery Process (Zaina Márquez RN) Goal(s): Patients Pain will be Assessed and Managed; Patient will Verbalize Adequate Relief of Pain or the Ability to [place] with Current Pain (Zaina Márquez RN) Interventions: Assess Pain Severity on Scale of 0 (None) to 5 (Severe); Assess Type, Location and Intensity of Pain Each Time Client Reports Discomfort and Notify Provider if Unusal Pain Develops; Encourage Proper Breathing and Relaxation Techniques; Offer Alternatives Such as Repositioning, Calm Environment, Massages, Diversional Activities, Ice Pack, Splinting, and Ambulation; Administer Analgesics as Ordered; Assist with Epidural Placement as Appropriate; Evaluate Therapeutic Effectiveness of Medication and Treatments (Zaina Márquez RN) Outcome: Patient will Report Absence or Relief of Pain Consistent with Established Pain Goal (Zaina Márquez RN) Status: Ongoing (Zaina Márquez RN) Outcome: Patient will have a Decrease in Signs and Symptoms of Discomfort (Zaina Márquez RN) Status: Ongoing (Zaina Márquez RN) Outcome: Pain will be Controlled During Procedures (Zaina Márquez RN) Status: Ongoing (Zaina Márquez RN) Anxiety State: Risk For (Zaina Márquez RN) Related To: Labor and Delivery Process (Zaina Márquez RN) Goal(s): Patient will have Decreased Anxiety and be able to Function at Acceptable Levels (Zaina Márquez RN) Interventions: Assess Verbal and Nonverbal Behavioral Indicators of Anxiety; Assist Patient to Identify and Verbalize Symptoms of Anxiety; Identify and Demonstrate Techniques to Control Anxiety; Assist Patient with Coping Mechanisms to Manage Anxiety; Provide Theraputic Touch for the Patient; Explain to Patient, Using a Calm Reassuring Approach and Nonmedical Terms, All Activities, Procedures, and Concerns; Instruct Patient and Family about Post Discharge Care, Limitations, Symptoms to Report and Resources Available (Zaina Márquez RN) Outcome: Patient will Identify, Verbalize and Demonstrate Techniques to Control Anxiety (Zaina Márquez RN) Status: Ongoing (Zaina Márquez RN) Outcome: Patient's Posture, Facial Expressions, Gestures and Activity Level will Reflect Decreased Anxiety (Zaina Márquez RN) Status: Ongoing (Zaina Márquez RN) Outcome: Patient will Verbalize a Sense of Control and/or Acceptance of the Situation (Zaina Márquez RN) Status: Ongoing (Zaina Márquez RN) Outcome: Patient will Identify and Utilize Support Person (Zaina Márquez RN) Status: Ongoing (Zaina Márquez RN) Knowledge Deficit State: Risk For (Zaina Márquez RN) Related To: Labor and Delivery Process (Zaina Márquez RN) Goal(s): Patient will Accurately Verbalize Understanding of Plan of Care and Treatment; Patient and Family will Accurately Verbalize Understanding of the Disease Process (Zaina Márquez RN) Interventions: Assess Motivation and Willingness of Patient/Family to Learn; Assess Preferred Learning Mode: One to One Instruction, Reading, Videos, Group Discussion or Demonstration; Assess Barriers to Learning: Pain, Emotional State, Language Barrier, Cognitive Impairment, Visual or Hearing Deficits; Assess Patient and Family Knowledge of Disease Process, Medications and Treatment; Discuss Therapy and/or Treatment Options, Describe Rationale Behind Management, Therapy and Treatment Recommendations; Instruct Patient and Family on Signs and Symptoms to Report; Instruct Patient and Family on Medication Effects and Side Effects; Provide Appropriate and Timely Education Using Multiple Techniques; Provide Patient and Family with Support Group Information and Resources; Give Clear and Thorough Explanations and Demonstrations (Zaina Márquez RN) Outcome: Patient and Family will Verbalize Understanding of Condition, Treatment and Signs and Symptoms to Report (Zaina Márquez RN) Status: Ongoing (Zaina Márquez RN) Outcome: Patient will Identify Perceived Learning Needs and Express Motivation to Learn (Zaina Márquez RN) Status: Ongoing (Zaina Márquez RN) Outcome: Patient will Verbalize Understanding of Desired Content, and/or Performs Desired Skill Prior to Discharge (Zaina Márquez RN) Status: Ongoing (Zaina Márquez RN) Infection State: Risk For (Zaina Márquez RN) Related To: Prolonged Labor or Induction (Zaina Márquez RN) Goal(s): The Patient will be Free of Infection, Vital Signs Stable and Lab Work within Normal Parameters (Zaina Márquez RN) Interventions: Instruct and Reinforce Proper Handwashing, Hygiene, and Care Techniques to Patient and Family; Monitor Vital Signs; Monitor Patient for the Following Signs of Infection: Fever, Abdominal Tenderness, Unusual Discharge; Monitor Aminiotic Fluid, Urine and Lochia for Color and Odor; Observe Wounds, Incisions and Invasive Line Sites for Redness, Drainage and Edema; Assess IV Sites per Hospital Policy; Monitor Lab and Test Results and Notify Provider of Abnormal Findings; Assess Nutritional Status and Promote Good Nutrition (Zaina Márquez RN) Outcome: Patient will Remain Free of Infection (Zaina Márquez RN) Status: Ongoing (Zaina Máqruez RN) Outcome: Infection will be Recognized Early to Allow for Prompt Treatment (Zaina Márquez RN) Status: Ongoing (Zaina Márquez RN) Outcome: Patient will have Vital Signs Within Expected Range (Zaina Márquez RN) Status: Ongoing (Zaina Márquez RN) Fluid Volume State: Risk For (Zaina Márquez RN) Related To: Gestational Hypertension; Prolonged Labor or Induction (Zaina Márquez RN) Goal(s): Patient will Achieve and Maintain a Balanced Fluid Volume Status; Hemodynamically Stable (Zaina Márquez RN) Interventions: Monitor Vital Signs; Auscultate Breath Sounds; Monitor Patient for Skin Turgor, Mucous Membranes, Dry Skin, Weakness, Headaches and Confusion; Provide Oral Fluids as Ordered; Initiate and Maintain Intravenous Fluids as Ordered; Monitor Intake and Output as Indicated Per Patient Status; Accurately Measure Blood Loss; Monitor Lab and Test Results as Obtained and Notify Provider of Abnormal Findings; Monitor Patient's Weight (Zaina Márquez RN) Outcome: Patient will have Clear Lung Sounds (Zaina Márquez RN) Status: Ongoing (Zaina Márquez RN) Outcome: Patient will have Vital Signs within Expected Range (Zaina Márquez RN) Status: Ongoing (Zaina Márquez RN) Outcome: Urine Output will be within Expected Range (Zaina Márquez RN) Status: Ongoing (Zaina Márquez RN) Outcome: Patient will have Minimal Generalized or Upper Extremity Edema (Zaina Márquez RN) Status: Ongoing (Zaina Márquez RN)
[2016-12-17 07:02] LABS: MEAN CORPUSCULAR VOLUME 89 fl (80-97)
[2016-12-17 07:10] LABS: HEMATOCRIT 28.2 % (36.0-47.0); HGB HCT DIFFERENCE 0.6; MEAN CORPUSCULAR HEMOGLOBIN 30.4 pg (27.0-33.4); RED BLOOD COUNT 3.16 10^6/uL (3.72-5.28); RED CELL DISTRIBUTION WIDTH 14.1 % (11.5-14.0); WHITE BLOOD COUNT 8.6 10^3/uL (4.0-10.5)
[2016-12-17 07:11] LABS: HEMOGLOBIN 9.6 g/dL (12.0-15.5)
[2016-12-17] MEDS: FERROUS SULFATE 325 MG TABLET PO SCH ×2 (09:47→17:12)
[2016-12-17] MEDS: PRENATAL VITAMIN W-O CA NO5/FE FUMARATE/FA CAPSULE PO SCH (09:47)
[2016-12-17] MEDS: SENNOSIDES/DOCUSATE 8.6-50 MG 1 EACH TABLET PO SCH (09:47)
[2016-12-17] MEDS: DOCUSATE SODIUM 100 MG CAPSULE PO SCH ×2 (09:47→17:12)
--- NOTE | 2016-12-17 09:55 | PDOC PROGRESS REPORT ---
Subjective-OB Subjective: Post Delivery Day:1 21 year old. Denies any needs at this time, voiding without difficulty, pain well controlled, lochia is stable. Physical Exam (OB) Vital Signs: Temp Pulse Resp BP Pulse Ox 97.8 F 73 15 118/65 100 12/17/16 08:35 12/17/16 08:35 12/17/16 08:35 12/17/16 08:35 12/17/16 08:35 Intake & Output 12/16/16 12/17/16 12/18/16 06:59 06:59 06:59 Weight 67.7 kg - PIH/Pre-Eclampsia DTR's: 2 + Clonus: Negative Headache: Absent Epigastric Pain: No Visual Changes: No - Lochia Lochia Amount: Scant < 10 ml Lochia Color: Rubra/Red - Abdomen Description: Tender, Soft, Round Hernia Present: No Fundal Description: Firm, Midline Fundal Height: u/u - u/2 Objective-Diagnostic Laboratory: 12/17/16 06:51 12/15/16 22:02 12/17/16 06:51 WBC 8.6 RBC 3.16 L Hgb 9.6 L D Hct 28.2 L MCV 89 MCH 30.4 MCHC 34.0 RDW 14.1 H Plt Count 143 L Assessment and Plan(PN) - Assessment and Plan (1) Vaginal delivery Is this a current diagnosis for this admission?: YesPlan: routine pp care anticipate d/c home tomorrow (2) Elevated blood pressure affecting in third trimester, antepartum Is this a current diagnosis for this admission?: YesPlan: continue to monitor - Time Spent with Patient Time with patient: Less than 15 minutes Critical Time spent with patient: Less than 15 minutes Medications reviewed and adjusted accordingly: Yes - Disposition Anticipated Discharge: Home Within: within 24 hours
[2016-12-18] MEDS: IBUPROFEN 800 MG TABLET PO SCH (05:53)
[2016-12-18 07:59] VITALS: BP 126/86
--- NOTE | 2016-12-18 08:47 | PDOC DISCHARGE SUMMARY ---
Final Diagnosis Discharge Date: 12/18/16 - Final Diagnosis (1) Vaginal delivery Is this a current diagnosis for this admission?: Yes (2) Elevated blood pressure affecting in third trimester, antepartum Is this a current diagnosis for this admission?: Yes Discharge Data - Discharge Medication Home Medications: Albuterol Sulfate [Ventolin HFA MDI 18 GM] 1 - 2 puff IH Q4H PRN 11/23/16 Pnv with Ca,No.72/Iron/FA [Pnv Plus Multivit Tab] 1 each PO DAILY 11/23 Docusate Sodium [Colace 100 mg Capsule] 100 mg PO BID #60 capsule 12/18/16 Ferrous Sulfate [Feosol 325 mg Tablet] 325 mg PO BID #60 tablet 12/18/16 Ibuprofen [Motrin 800 mg Tablet] 800 mg PO Q8 #60 tablet 12/18/16 Gestational Age: 39.1 Reason(s) for Admission: Induction of Labor, PIH Procedures: NST Intrapartum Procedure(s): Spontaneous Vaginal Delivery Complication(s): Laceration-Periurethral Laceration-Degree: 1st - Data Baby 1 Male at 1 minute: 9 at 5 minutes: 9 Weight: 3205 kg Home with Mother: Yes Complications: No - Diagnosis Test Laboratory: Temp Pulse Resp BP Pulse Ox 98.2 F 67 17 126/86 H 99 12/18/16 08:02 12/18/16 08:02 12/18/16 08:02 12/18/16 07:52 12/18/16 08:02 12/15/16 12/15/16 12/17/16 21:34 22:02 06:51 RBC 3.88 3.16 L Hgb 11.8 L 9.6 L D Hct 34.1 L 28.2 L Urine Opiates Screen NEGATIVE - Discharge information/Instructions Discharge Activity: Activity As Tolerated, No Lifting Over 10 Pounds, Pelvic Rest, No tub bath Discharge Diet: Regular Disposition: HOME, SELF-CARE Follow [facility] with: [facility] in: 4, Weeks
[2016-12-18] MEDS: DOCUSATE SODIUM 100 MG CAPSULE PO SCH (09:08)
[2016-12-18] MEDS: FERROUS SULFATE 325 MG TABLET PO SCH (09:09)
[2016-12-18] MEDS: PRENATAL VITAMIN W-O CA NO5/FE FUMARATE/FA CAPSULE PO SCH (09:09)
[2016-12-18] MEDS: SENNOSIDES/DOCUSATE 8.6-50 MG 1 EACH TABLET PO SCH (09:09)
--- NOTE | 2016-12-26 18:54 | Delivery Summary ---
Del Sum A-C Datetime Report Generated by CPN: 12/26/2016 18:53 ADMISSION DATA Chief Complaint: Uterine Contractions Indication for Induction: Not Applicable Admission Impression: Term, Intrauterine ; No Active Labor; Intact Membranes Admission Impression Comments: Severe Range Blood Pressure DELIVERY PERSONNEL Delivery Doctor:: Shaina Macedo CNM Labor and Delivery Nurse:: Galilea Franks RNfuel cell battery technician Nurse:: Lyssa Murrieta RN Head Of Marketing Adometry/FIBER TECHNICIAN: ST [facility] Additional Personnel: : Ivonne Bellavance, RNC MATERNAL INFORMATION Delivery Anesthesia: None Medications After Delivery: Pitocin Bolus-Please Comment Meds After Delivery Comment: 20 Units Pitocin/1000ml NS bolus Estimated Blood Loss (ml): 250 Maternal Complications: None Provider Comments: of viable male infant, head and shoulders delivered without difficulty. with spontaneous cry and respirations to maternal abdomen, skin to skin, cord clamped X2 cut free by patients support person. Spontaneous delivery of intact placenta via gonzáles mechanism, 3VC appears intact. Repair as above. Hemostasis acheived with external fundal massage and IV pitocin, mother and baby in stable condition. LABOR SUMMARY EDC: 12/22/2016 00:00 No. Babies in Womb: 1 Attempted: No Labor Anesthesia: None LABOR INFORMATION Reason for Induction: Gestational Hypertension Onset of Labor: 12/16/2016 04:00 Cervical Ripening Agents: Cytotec @ Oxytocin: N/A Group B Beta Strep: Negative Antibiotics # of Doses: 0 Antibiotics Time of Last Dose: N/A Steroids Given: None Reason Steroids Not Administered: Not Applicable MEMBRANES Membranes Rupture Method: Artificial Amniotic Fluid Color: Clear Amniotic Fluid Amount: Small Amniotic Fluid Odor: None STAGES OF LABOR Stage 3 hr: 0 Stage 3 min: 5 Total Time in Labor hr: 5 Total Time in Labor min: 13 VAGINAL DELIVERY Episiotomy: None Laceration Extension: First Degree Other Laceration: bilateral labial tear Laceration Repair: Yes Laceration Repair Note: bilateral labial lacerations reapired with 3-0 chromic with lidocaine for anesthesia Sponge Count Correct: N/A Sharps Count Correct: N/A BABY A INFORMATION Delivery Date/Time: 12/16/2016 09:08 Method of Delivery: Vaginal Born in Route : No : N/A Forceps: N/A Vacuum Extraction: N/A Shoulder Dystocia : No PRESENTATION/POSITION BABY A Presentation: Cephalic Cephalic Presentation: Vertex Vertex Position: Right Occipital Anterior Breech Presentation: N/A PLACENTA INFORMATION BABY A Placenta Delivery Time : 12/16/2016 09:13 Placenta Method of Delivery: Spontaneous Placenta Status: Delivered SCORES BABY A Heart Rate 1 min: >100 bpm Resp Effort 1 min: Good Cry Reflex Irritability 1 min: Cough or Sneeze or Pulls Away Muscle Tone 1 min: Active Motion Color 1 min: Body Toccopola, Extremities Blue Resuscitation Effort 1 min: Tactile Stimulation SCORE 1 MIN: 9 Heart Rate 5 min: >100 bpm Resp Effort 5 min: Good Cry Reflex Irritability 5 min: Cough or Sneeze or Pulls Away Muscle Tone 5 min: Active Motion Color 5 min: Body Toccopola, Extremities Blue Resuscitation Effort 5 min: Tactile Stimulation SCORE 5 MIN: 9 INFANT INFORMATION BABY A Gestational Age at Delivery: 39.1 Gestational Status: Full Term- 39- 40.6 Weeks Outcome : Liveborn Condition : Stable Sex: Male IDENTIFICATION BABY A Verification Date/Time: 12/16/2016 09:31 ID Band Number: [id number] Mother's Name Verified: Yes RN Verifying : S Camp RNC Additional Verifying Personnel: D [facility] RNC WEIGHT/LENGTH BABY A Birthweight (gm): 3205 Infant Weight (lb): 7 Infant Weight (oz): 1 Length (in): 19.00 Length (cm): 48.26 CORD INFORMATION BABY A No. Cord Vessels: 3 Nuchal Cord : N/A Cord Blood Taken: Yes-For Storage (Mom's Blood type +) Infant Suction: None ASSESSMENT BABY A Infant Complications: Meconium Physical Findings at Delivery: Within Normal Limits Respirations: Appears Normal Skin to Skin: Yes Skin to Skin Time (min): 85 (Annotations: out to nursery with Kavya Shaffer RN) Cranberry Bog Supervisor/ALS Called : No Care By: MANAS [place] Transferred To: Remains with Mother BABY B INFORMATION : N/A SIGNATURES Assignment: Etelvina Ervin MD Signature: with User ID: Sharan : with User ID: Sharan
--- NOTE | 2016-12-27 06:01 | L&D General Admission ---
General Admit Datetime Report Generated by CPN: 12/27/2016 06:00 INFORMATION Patient Age: 21 (11/23/2016 13:17:QS system process) EDC: 12/22/2016 00:00 (11/23/2016 13:19:Maliha Tatum RN) : 3 (11/23/2016 13:19:Maliha Tatum RN) Para: 0 (11/23/2016 14:24:Maliha Tatum RN) Term: 0 (11/23/2016 13:19:Lily Beltre RN) : 0 (11/23/2016 13:19:Lily Beltre RN) Spontaneous Abortions: 1 (11/23/2016 13:19:Maliha Tatum RN) Induced Abortions: 1 (11/23/2016 13:19:Maliha Tatum RN) Livin (11/23/2016 13:19:Maliha Tatum RN) Cesareans: 0 (11/23/2016 13:19:Lily Beltre RN) VBACs: 0 (11/23/2016 13:19:Lily Beltre RN) Ectopic: 0 (11/23/2016 13:19:Lily Beltre RN) Multiple Births: 0 (11/23/2016 13:19:Lily Beltre RN) Baby, Number in Womb: 1 (11/23/2016 14:24:Maliha Tatum RN) CARE Primary Slotter Operator Helper[facility] (11/23/2016 13:19:Maliha Tatum RN) Month of 1st Visit: May (11/23/2016 13:19:Maliha Tatum RN) Adequate Care: Yes (11/23/2016 13:19:Maliha Tatum RN) Prepregnancy Weight (lb): 110 (11/23/2016 13:19:Maliha Tatum RN) Prepregnancy Weight (kg): 50.0 (11/23/2016 13:19:QS system process) Height (in): 65 (11/23/2016 14:09:QS system process) ALLERGIES Medication Allergy: No (11/23/2016 13:19:Maliha Tatum RN) Medication Allergies: No Known Allergies (12/15/2016) (12/15/2016 21:35:QS system process) Latex Allergy: No Latex Allergies (11/23/2016 13:19:Maliha Tatum RN) Food Allergies: none (11/23/2016 13:19:Madie Anthony RN) Environmental Allergies: none (11/23/2016 13:19:Madie Anthony RN) COMMUNICATION Primary Language: Palestinian (11/23/2016 13:19:Maliha Tatum RN) Medical Tx Preferred Language: Palestinian (11/23/2016 13:19:Lily Beltre RN) Communication Barrier(s): None (11/23/2016 13:19:Lily Beltre RN) DEMOGRAPHICS Address: [address] [place] [id number] (11/23/2016 13:17:QS system process) Zipcode: [address] (11/23/2016 13:17:QS system process) Home (11/23/2016 13:17:QS system process) SSN: [id number] (11/23/2016 13:17:QS system process) Next of Kin Name: BENITO DAIGLE (11/23/2016 13:17:QS system process) Next of Kin (11/23/2016 13:17:QS system process) Next of Kin Relationship: SPO (11/23/2016 13:17:QS system process) Date of : 1995 (11/23/2016 13:17:QS system process) Marital Status: (11/23/2016 13:17:QS system process) Sex: Female (11/23/2016 13:17:QS system process) Race: Other (11/23/2016 13:17:QS system process) Ethnicity: or (11/23/2016 13:17:QS system process) Sikhism: None (11/23/2016 13:17:QS system process) DRUG AND ALCOHOL USE Alcohol: No (11/23/2016 13:19:Maliha Tatum RN) Cigarettes: Never Smoker. [id number] (11/23/2016 13:19:Maliha Tatum RN) Marijuana: No (11/23/2016 13:19:Maliha Tatum RN) Cocaine: No (11/23/2016 13:19:Maliha Tatum RN) Other Illicit Drugs: No (11/23/2016 13:19:Maliha Tatum RN) VACCINE HISTORY Influenza Vaccine: Yes (11/23/2016 13:19:Maliha Tatum RN) Influenza Date: 08/2016 (11/23/2016 13:19:Maliha Tatum RN) Pneumococcal Vaccine: No (11/23/2016 13:19:Maliha Tatum RN) Tetanus Vaccine: Yes (11/23/2016 13:19:Maliha Tatum RN) Tetanus Date: 09/2016 (11/23/2016 13:19:Maliha Tatum RN) Tdap Vaccine: Yes (11/23/2016 13:19:Maliha Tatum RN) Tdap Date: 09/2016 (11/23/2016 13:19:Maliha Tatum RN) Hepatitis B Vaccine: Uncertain (11/23/2016 13:19:Maliha Tatum RN) Contract Modeler: [facility] (11/23/2016 13:19:Zaina Márquez RN) Feeding Preference: Breast (11/23/2016 13:19:Galilea Franks RN) Benefit of Breast Feed Discussed: Yes (11/23/2016 13:19:Maliha Tatum RN) Circumcision: No (11/23/2016 13:19:Maliha Tatum RN) Classes Attended: No (11/23/2016 13:19:Maliha Tatum RN) Tubal Ligation: No (11/23/2016 13:19:Maliha Tatum RN) Tubal Authorization Signed: N/A (11/23/2016 13:19:Maliha Tatum RN) Consent: N/A (11/23/2016 13:19:Maliha Tatum RN) Consent Signed: N/A (11/23/2016 13:19:Maliha Tatum RN) Support Person: Benito Daigle (11/23/2016 13:19:Maliha Tatum RN) Support Person Relationship: Significant Other (11/23/2016 13:19:Maliha Tatum RN) Cultural/Spritual Practice: No (11/23/2016 13:19:Maliha Tatum RN) Spir/Cult Dietary Needs: No (11/23/2016 13:19:Maliha Tatum RN) LIVING SITUATION/DISCHARGE PLAN Living Arrangements: House (11/23/2016 13:19:Maliha Tatum RN) Adequate Access to:: Electric; Heat; Refrigeration; Plumbing/Running water; Phone; Transportation (11/23/2016 13:19:Maliha Tatum RN) WIC Program: No (11/23/2016 13:19:Maliha Tatum RN) Discharge Tar Heat Exchanger Cleaner Person: Benito (11/23/2016 13:19:Maliha Tautm RN) Person to Help after Discharge: Benito (11/23/2016 13:19:Maliha Tatum RN) Currently Using Commun Resources: No (11/23/2016 13:19:Maliha Tatum RN) Outside Agency/Bus Person: No (11/23/2016 13:19:Maliha Tatum RN) Car Seat for Discharge: Yes (11/23/2016 13:19:Maliha Tatum RN) Adoption Requested: No (11/23/2016 13:19:Maliha Tatum RN) Pt Contact w/infant Post : N/A (11/23/2016 13:19:Maliha Tatum RN) LABS Blood Type: A Positive (11/23/2016 13:19:Maliha Tatum RN) Antibody Screen: Negative (11/23/2016 13:19:Maliha Tatum RN) Rho(G) this : Not Applicable (11/23/2016 13:19:Lily Beltre RN) Hemoglobin: 9.6 L (12/17/2016 06:51:QS system process) Hematocrit: 28.2 L (12/17/2016 06:51:QS system process) MCV: 89 (12/17/2016 06:51:QS system process) Group Beta Strep: Negative (11/23/2016 13:19:Lily Beltre RN) Gonorrhea: Negative (11/23/2016 13:19:Maliha Tatum RN) Chlamydia: Negative (11/23/2016 13:19:Maliha Tatum RN) RPR/VDRL: Nonreactive (11/23/2016 13:19:Maliha Tatum RN) HIV Exposure Test: Negative (11/23/2016 13:19:Maliha Tatum RN) Hepatitis B: Negative (11/23/2016 13:19:Maliha Tatum RN) Rubella: Immune (11/23/2016 13:19:Maliha Tatum RN) OB/PREVIOUS HISTORY Previous Procedures: None (11/23/2016 13:19:Lily Beltre RN) Current Procedures: Ultrasound; NST (11/23/2016 13:19:Maliha Tatum RN) History of Previous : No (11/23/2016 13:19:Maliha Tatum RN) History of Gestational Diabetes: No (11/23/2016 13:19:Maliha Tatum RN) History of PIH: No (11/23/2016 13:19:Maliha Tatum RN) History of Incompetent Cervix: No (11/23/2016 13:19:Maliha Tatum RN) History of Placenta Previa/Abrup: No (11/23/2016 13:19:Maliha Tatum RN) History of Macrosomia: No (11/23/2016 13:19:Maliha Tatum RN) History of IUGR: No (11/23/2016 13:19:Maliha Tatum RN) History of Hemorrhage: No (11/23/2016 13:19:Maliha Tatum RN) History of Loss/Stillborn: No (11/23/2016 13:19:Maliha Tatum RN) History of : No (11/23/2016 13:19:Maliha Tatum RN) History of D (Rh) Sensitization: No (11/23/2016 13:19:Maliha Tatum RN) History Recurrent Loss/Stillborn: No (11/23/2016 13:19:Maliha Tatum RN) History Depression/PP Depression: No (11/23/2016 13:19:Maliha Tatum RN) History of Uterine Anomaly/LOPEZ: No (11/23/2016 13:19:Maliha Tatum RN) History of Infertility: No (11/23/2016 13:19:Maliha Tatum RN) History of ART Treatment: No (11/23/2016 13:19:Maliha Tatum RN) History of LOPEZ: No (11/23/2016 13:19:Maliha Tatum RN) Comments Obstetrical History: G1: IEB 2013 G2: SAB 2014 G3: current (11/23/2016 13:19:Maliha Tatum RN) MEDICAL HISTORY Med Hx Diabetes: No (11/23/2016 13:19:Maliha Tatum RN) Med Hx Hypertension: No (11/23/2016 13:19:Maliha Tatum RN) Med Hx Heart Disease: No (11/23/2016 13:19:Maliha Tatum RN) Med Hx Autoimmune Disorder: No (11/23/2016 13:19:Maliha Tatum RN) Med Hx Kidney Disease/UTI: No (11/23/2016 13:19:Maliha Tatum RN) Med Hx Neurologic/Epilepsy: No (11/23/2016 13:19:Maliha Tatum RN) Med Hx Psychiatric Disorders: No (11/23/2016 13:19:Maliha Tatum RN) Med Hx Hepatitis/Liver Disease: No (11/23/2016 13:19:Maliha Tatum RN) Med Hx Varicosities/Phlebitis: No (11/23/2016 13:19:Maliha Tatum RN) Med Hx Thyroid Dysfunction: No (11/23/2016 13:19:Maliha Tatum RN) Med Hx Trauma/Violence: No (11/23/2016 13:19:Maliha Tatum RN) Med Hx Blood Transfusion: No (11/23/2016 13:19:Maliha Tatum RN) Med Hx Pulmonary (Asthma,TB): Yes (11/23/2016 13:19:Maliha Tatum RN) Med Hx Breast: No (11/23/2016 13:19:Maliha Tatum RN) Med Hx SNAPPER ON Surgery: No (11/23/2016 13:19:Maliha Tatum RN) Med Hx Hospitalization/Surgery: No (11/23/2016 13:19:Maliha Tatum RN) Med Hx Anesthetic Complications: No (11/23/2016 13:19:Maliha aTtum RN) Med Hx Abnormal Pap Smear: No (11/23/2016 13:19:Maliha Tatum RN) Other Medical Diseases: No (11/23/2016 13:19:Maliha Tatum RN) Med Hx Significant Family Hx: No (11/23/2016 13:19:Maliha Tatum RN) Details of Med/Surg Hx: Asthma (Albuterol) (11/23/2016 13:19:Maliha Tatum RN) INFECTIOUS HISTORY Inf Hx Gonorrhea: No (11/23/2016 13:19:Maliha Tatum RN) Inf Hx Chlamydia: No (11/23/2016 13:19:Maliha Tatum RN) Inf Hx Syphilis: No (11/23/2016 13:19:Maliha Tatum RN) Inf Hx HIV/AIDS: No (11/23/2016 13:19:Maliha Tatum RN) Inf Hx Human Papilloma Virus: No (11/23/2016 13:19:Maliha Tatum RN) Inf Hx Pt/Partner Genital Herpes: No (11/23/2016 13:19:Maliha Tatum RN) Inf Hx Tuberculosis/Exposure: No (11/23/2016 13:19:Maliha Tatum RN) Inf Hx Hepatitis B,C: No (11/23/2016 13:19:Maliha Tatum RN) Inf Hx Rash or Viral Illness: No (11/23/2016 13:19:Maliha Tatum RN) GENETIC HISTORY Gen Hx Age >=35 at KALEN: No (11/23/2016 13:19:Maliha Tatum RN) Gen Hx Thalassemia: No (11/23/2016 13:19:Maliha Tatum RN) Gen Hx Congenital Heart Defect: No (11/23/2016 13:19:Maliha Tatum RN) Gen Hx Neural Tube Defect: No (11/23/2016 13:19:Maliha Tatum RN) Gen Hx Down's Syndrome: No (11/23/2016 13:19:Maliha Tatum RN) Gen Hx Guevara-Sachs: No (11/23/2016 13:19:Maliha Tatum RN) Gen Hx Caren: No (11/23/2016 13:19:Maliha Tatum RN) Gen Hx Familial Dysautonomia: No (11/23/2016 13:19:Maliha Tatum RN) Gen Hx Sickle Cell Disease/Trait: No (11/23/2016 13:19:Maliha Tatum RN) Gen Hx Hemophilia/Blood Disorder: No (11/23/2016 13:19:Maliha Tatum RN) Gen Hx Muscular Dystrophy: No (11/23/2016 13:19:Maliha Tatum RN) Gen Hx Cystic Fibrosis: No (11/23/2016 13:19:Maliha Tatum RN) Gen Hx Huntingtons Chorea: No (11/23/2016 13:19:aMliha Tatum RN) Gen Hx Mental Retardation/Autism: No (11/23/2016 13:19:Maliha Tatum RN) Gen Hx Tested for Fragile X: No (11/23/2016 13:19:Maliha Tatum RN) Gen Hx Other Inher/Chromosomal: No (11/23/2016 13:19:Maliha Tatum RN) Gen Hx Maternal Metabolic DO: No (11/23/2016 13:19:Maliha Tatum RN) Gen Hx Pt Father or FOB Defect: No (11/23/2016 13:19:Maliha Tatum RN) Gen Hx Other Genetic History: No (11/23/2016 13:19:Maliha Tatum RN) Gen Hx Drugs/Meds since LMP: Yes (11/23/2016 13:19:Maliha Tatum RN) Gen Hx Medications: PNV, albuterol, tylenol (11/23/2016 13:19:Maliha Tatum RN)
--- NOTE | 2016-12-27 06:01 | L&D Current Admission ---
Current Admit Datetime Report Generated by CPN: 12/27/2016 06:00 ADMISSION INFORMATION Current Admit Date/Time: 12/15/2016 23:00 (12/16/2016 00:36:Madie Anthony RN) Reason for Admission: Induction of Labor (12/16/2016 00:36:Madie Anthony RN) Chief Complaint: Contractions (12/16/2016 00:36:Madie Anthony RN) Medications During : Albuterol MDI; Vitamin (12/16/2016 00:36:Madie Anthony RN) EGA per Dates: 39.0 (12/16/2016 00:36:QS system process) Method of Arrival: Wheelchair (12/16/2016 00:36:Madie Anthony RN) Admitted From: Home (12/16/2016 00:36:Madie Anthony RN) Reason for Induction: Other (12/16/2016 00:36:Madie Anthony RN) Reason for Induction- Other: Increased blookd pressures with no history (12/16/2016 00:36:Madie Anthony RN) Records Available: Yes (12/16/2016 00:36:Madie Anthony RN) General Admission Information: Reviewed (12/16/2016 00:36:Madie Anthony RN) BELONGINGS/ADVANCED DIRECTIVES Comments Regarding Disposition: see [facility] consent form (12/16/2016 00:36:Madie Anthony RN) Advance Direct for Healthcare: Yes, Placed on Chart (12/16/2016 00:36:Madie Anthony RN) Durable Power of Cyanide Pot Hardener: No (12/16/2016 00:36:Madie Anthony RN) Living Will: No (12/16/2016 00:36:Madie Anthony RN) Organ Donor: No (12/16/2016 00:36:Madie Anthony RN) Pt Rights Information Given: Yes (12/16/2016 00:36:Madie Anthony RN) Pt Understands Pt Rights: Yes (12/16/2016 00:36:Madie Anthony RN) LEARNING ASSESSMENT Knowledge Level: Understands L_D Process (12/16/2016 00:36:Madie Anthony RN) Barriers to Learning: None (12/16/2016 00:36:Madie Anthony RN) Learning Readiness: Motivated (12/16/2016 00:36:Madie Anthony RN) Learns Best By: 1 to 1 Instruction; Reading; Videos; Demonstration (12/16/2016 00:36:Madie Anthony RN) Learning Needs: Labor and Delivery Process (12/16/2016 00:36:Madie Anthony RN) DOMESTIC VIOLANCE SCREENING Dom Viol Threatened/Hurt: No (12/16/2016 00:36:Madie Anthony RN) Hx of Abuse/Neglect past 2yrs: No (12/16/2016 00:36:Madie Anthony RN) Feel Unsafe Going Home: No (12/16/2016 00:36:Madie Anthony RN) Addt'l Observ Indicating Abuse: No (12/16/2016 00:36:Madie Anthony RN) Reason Unable to Complete Screen: N/A, Screen Completed (12/16/2016 00:36:Madie Anthony RN) Considered Personal Harm/Suicide: No (12/16/2016 00:36:Madie Anthony RN) NUTRITIONAL/FUNCTIONAL SCREENING Problem with Appetite >5 Days: No (12/16/2016 00:36:Madie Anthony RN) Chew/Swallow Difficulties: No (12/16/2016 00:36:Madie Anthony RN) Inappropriate Wt Gain/Loss: No (12/16/2016 00:36:Madie Anthony RN) Presence Skin Breakdown/Ulcer: No (12/16/2016 00:36:Madie Anthony RN) Special Diet: No (12/16/2016 00:36:Madie Anthony RN) Pt Requests Marble Finisher Visit: No (12/16/2016 00:36:Madie Anthony RN) Hx of Any of the Following?: N/A (12/16/2016 00:36:Madie Anthony RN) New Diagnosis of: N/A (12/16/2016 00:36:Madie Anthony RN) Requires Assist w/Ambulation: No (12/16/2016 00:36:Madie Anthony RN) Uses Assist Device to Ambulate: No (12/16/2016 00:36:Madie Anthony RN) Pt Requires Help w/ADL's: No (12/16/2016 00:36:Madie Anthony RN)
== END 2016-12-18 11:15 | disposition home or self-care (01) | DRG 775 ==
LOC: LC 21:24 → LR 22:54 → 2S 12-16 11:21
PROVIDERS: ADMIT Obstetrics & Gynecology; ATTEND Obstetrics & Gynecology
PROC: 3E0P7GC Introduction of Other Therapeutic Substance into Female Reproductive, Via Natural or Artificial Opening (ICD-10-PCS; 2016-12-15)
PROC: 10E0XZZ Delivery of Products of Conception, External Approach (ICD-10-PCS; principal; 2016-12-16)
PROC: 0HQ9XZZ Repair Perineum Skin, External Approach (ICD-10-PCS; 2016-12-16)
PROC: 4A1HXCZ Monitoring of Products of Conception, Cardiac Rate, External Approach (ICD-10-PCS; 2016-12-16)
DX: O13.4 Gestational [pregnancy-induced] hypertension without significant proteinuria, complicating childbirth (principal); O70.0 First degree perineal laceration during delivery; O77.0 Labor and delivery complicated by meconium in amniotic fluid; O99.52 Diseases of the respiratory system complicating childbirth; J45.909 Unspecified asthma, uncomplicated; Z37.0 Single live birth; Z3A.39 39 weeks gestation of pregnancy
CPT/HCPCS: 36415; 80053; 80307; 81005; 83615; 84550; 85025; 85027; 86592; 86850; 86900; 86901; J2590; J3490

== ENCOUNTER 2017-09-04 17:14 | Emergency (ER) | payer OTHER ==
--- NOTE | 2017-09-04 19:57 | ER Document Report ---
ED Medical Screen (RME) - General Chief Complaint: Abdominal Pain >50 Stated Complaint: STOMACH PAIN Time Seen by Provider: 09/04/17 19:56 Notes: Patient states she has lower abdominal pain just inferior to her umbilicus. She states it seems to be near the surgical incision from her appendectomy. Patient had an appendectomy approximate 1 month ago. She states that her symptoms feel similar to when she had to have her appendix removed. She denies any vomiting. She has been eating normally. No vaginal discharge or bleeding. No problems with stools or urine. She denies any chronic medical problems. TRAVEL OUTSIDE OF THE [place] IN LAST 30 DAYS: No - Related Data Allergies/Adverse Reactions: No Known Allergies Allergy (Verified 12/15/16 21:34) Past Medical History Renal/ Medical History: Denies: Hx Peritoneal Dialysis Physical Exam - Vital signs Vitals: Temp Pulse Resp BP Pulse Ox 98.8 F 61 12 110/75 97 09/04/17 17:38 09/04/17 17:38 09/04/17 17:38 09/04/17 17:38 09/04/17 17:38 Course - Vital Signs Vital signs: Temp Pulse Resp BP Pulse Ox 98.8 F 61 12 110/75 97 09/04/17 17:38 09/04/17 17:38 09/04/17 17:38 09/04/17 17:38 09/04/17 17:38
[2017-09-04 20:40] LABS: ABSOLUTE EOSINOPHILS # (AUTO) 0.1 10^3/uL (0.0-0.6); ABSOLUTE LYMPHOCYTES (AUTO) 2.5 10^3/uL (0.5-4.7); ABSOLUTE MONOCYTES (AUTO) 0.3 10^3/uL (0.1-1.4); ABSOLUTE NEUT (AUTO) 3.6 10^3/uL (1.7-8.2); BASOPHILS % (AUTO) 0.7 % (0-2); EOSINOPHILS % (AUTO) 1.8 % (0-6); HEMATOCRIT 39.3 % (36.0-47.0); HEMOGLOBIN 13.3 g/dL (12.0-15.5); HGB HCT DIFFERENCE 0.6; LYMPHOCYTES % (AUTO) 37.9 % (13-45); MEAN CORPUSCULAR HEMOGLOBIN 30.2 pg (27.0-33.4); MEAN CORPUSCULAR HGB CONC 33.9 g/dL (32.0-36.0); MEAN CORPUSCULAR VOLUME 89 fl (80-97); MONOCYTES % (AUTO) 5.1 % (3-13); RED BLOOD COUNT 4.41 10^6/uL (3.72-5.28); RED CELL DISTRIBUTION WIDTH 13.1 % (11.5-14.0); SEGMENTED NEUTROPHILS % (AUTO) 54.5 % (42-78); WHITE BLOOD COUNT 6.7 10^3/uL (4.0-10.5)
[2017-09-04] MEDS ORDERED: SULFAMETHOXAZOLE/TRIMETHOPRIM 800-160 MG TABLET PO ONE (21:03)
--- NOTE | 2017-09-04 21:04 | ER Document Report ---
ED General - General Chief Complaint: Abdominal Pain >50 Stated Complaint: STOMACH PAIN Time Seen by Provider: 09/04/17 19:56 Notes: Patient is a 22-year-old female with a history of an appendectomy one month ago in [place] who presents with 24 hours of increasing swelling and pain to the umbilical laparoscopic incisional site. Patient states that this area did just present over the past 24-48 hours. Notes a dull, constant, mild throbbing pain to the area that is constant in nature. Worsened by touching area. She has not tried any to improve the pain. Denies any additional symptoms including fever, vomiting, diarrhea, or any other sites of pain. She has not followed up with her surgeon regarding this concern is she no longer lives in [place]. TRAVEL OUTSIDE OF THE [place] IN LAST 30 DAYS: No - Related Data Allergies/Adverse Reactions: No Known Allergies Allergy (Verified 12/15/16 21:34) Past Medical History - General Information source: Patient - Social History Smoking Status: Never Smoker Frequency of alcohol use: None Drug Abuse: None Lives with: Spouse/Significant other Family History: Reviewed & Not Pertinent Patient has suicidal ideation: No Patient has homicidal ideation: No Renal/ Medical History: Denies: Hx Peritoneal Dialysis Review of Systems - Review of Systems Notes: Constitutional: Negative for fever. HENT: Negative for sore throat. Eyes: Negative for visual changes. Cardiovascular: Negative for chest pain. Respiratory: Negative for shortness of breath. Gastrointestinal: Negative for abdominal pain, vomiting or diarrhea. Genitourinary: Negative for dysuria. Musculoskeletal: Negative for back pain. Skin: Positive for incisional site swelling Neurological: Negative for headaches, weakness or numbness. 10 point ROS negative except as marked above and in HPI. Physical Exam - Vital signs Vitals: Temp Pulse Resp BP Pulse Ox 98.8 F 61 12 110/75 97 09/04/17 17:38 09/04/17 17:38 09/04/17 17:38 09/04/17 17:38 09/04/17 17:38 Interpretation: Normal Notes: PHYSICAL EXAMINATION: GENERAL: Well-appearing, well-nourished and in no acute distress. HEAD: Atraumatic, normocephalic. EYES: Pupils equal round and reactive to light, extraocular movements intact, sclera anicteric, conjunctiva are normal. ENT: nares patent, oropharynx clear without exudates. Moist mucous membranes. NECK: Normal range of motion, supple without lymphadenopathy LUNGS: Breath sounds clear to auscultation bilaterally and equal. No wheezes rales or rhonchi. HEART: Regular rate and rhythm without murmurs ABDOMEN: Soft, nontender, normoactive bowel sounds. No guarding, no rebound. No masses appreciated. EXTREMITIES: Normal range of motion, no pitting or edema. No cyanosis. NEUROLOGICAL: No focal neurological deficits. Moves all extremities spontaneously and on command. PSYCH: Normal mood, normal affect. SKIN: Warm, Dry, normal turgor, there is a small, firm, somewhat fluctuant nodule below the umbilical incisional line Course - Re-evaluation Re-evalutation: 09/04/17 20:59 Patient presents with a small seroma underneath the umbilical incision from her appendectomy. A bedside ultrasound did demonstrate a small fluid collection with cobblestoning pattern on the overlying soft tissue directly beneath this incisional line. This area was anesthetized and an incision was made. I did confirm using bedside ultrasound that I entered into the pocket using an 18- gauge needle. An incision was then made with an 11 blade scalpel. Serous, bloody fluid was expressed and the area of firmness did dissipate. I did not express any purulent drainage. I suspect a serous collection postoperatively although I will place the patient empirically on trimethoprim sulfamethoxazole and request that she follow-up with the general surgeon should she have any further pain or swelling to the area. At this time will discharge with return precautions and follow-up recommendations. Verbal discharge instructions given a the bedside and opportunity for questions given. Medication warnings reviewed. Patient is in agreement with this plan and has verbalized understanding of return precautions and the need for primary care follow-up in the next 24-72 hours. - Vital Signs Vital signs: Temp Pulse Resp BP Pulse Ox 98 F 66 16 108/82 99 09/04/17 21:00 09/04/17 21:00 09/04/17 21:00 09/04/17 21:00 09/04/17 21:00 - Laboratory Result Diagrams: 09/04/17 20:09 09/04/17 20:09 Procedures - Incision and Drainage Abdomen Type: Simple Anesthetic type: 1% Lidocaine mL's of anesthetic: 2 Blade size: 11 I&D procedure: Betadine prep applied Incision Method: Incision made by scalpel Amount/type of drainage: 2 cc of bloody, serous fluid Discharge - Discharge Clinical Impression: Seroma complicating procedure Condition: Good Disposition: HOME, SELF-CARE Additional Instructions: The area of swelling on your lower abdomen appears to be a fluid collection from your recent surgery. This area was opened but no pus came out. Blood and clear fluid did exit consistent with an acute seroma. You are empirically being placed on antibiotic for the next 5 these days. Please take as directed. Use Tylenol or ibuprofen as needed for discomfort. Please follow-up with the surgeon included in the paperwork if the area of swelling recurs, you have worsening pain to the area, you develop fever, or any other symptoms that are worrisome to you. Prescriptions: Sulfamethoxazole/Trimethoprim [Bactrim Ds Tablet] 2 tab PO BID #[id number] tablet Referrals: KRIS ARIAS MD [ACTIVE STAFF] - Follow up as needed
[2017-09-04 21:49] VITALS: BP 108/82
== END 2017-09-04 21:35 | disposition home or self-care (01) ==
LOC: ER 17:14
PROC: 0H97XZZ Drainage of Abdomen Skin, External Approach (ICD-10-PCS; principal; 2017-09-04)
DX: L76.34 Postprocedural seroma of skin and subcutaneous tissue following other procedure (principal); Y83.8 Other surgical procedures as the cause of abnormal reaction of the patient, or of later complication, without mention of misadventure at the time of the procedure
CPT/HCPCS: 36415; 85025; 99283